=== PATIENT | male | born 1945 | race Caucasian/White ===

== ENCOUNTER 2022-03-02 11:52 | Inpatient (IN) | payer MEDICARE, OTHER, SELFPAY ==
[2022-03-02] VITALS (22 sets, daily range): BP systolic 108–133; BP diastolic 55–71; PULSE 78–99; RESP 14–18; TEMP 36.8–37.6; O2SAT 92–99; BMI 36.2
--- NOTE | 2022-03-02 13:02 | ED_ITS ---
HPI - General Adult General Time Seen by Provider: 13:03 Date Seen: 03/02/22 Chief complaint: Abdominal Pain Stated complaint: abdominal pain Time Seen by Provider: 03/02/22 12:21 Source: patient Mode of arrival: ambulatory Limitations: no limitations History of Present Illness HPI narrative: Aleksander is a 77-year-old male past medical history includes aortic stenosis, diabetes mellitus type 2, hypertension, status post appendectomy presents emergency department with with abdominal pain. Patient states that around 10:00 p.m. last night he developed some lower abdominal pain, sharp in nature, no radiation, no associated nausea vomiting, he had a normal bowel movement this morning with no blood in the stool, denies any urinary complaints or back pain. No fevers or chills. He had similar symptoms about a month ago but resolved over time. Patient has had 2 colonoscopies over the last 10 years which have been normal. Patient's pain is 8/10. Related Data Home Medications Medication Instructions Recorded Confirmed amlodipine 10 mg tablet 10 mg PO DAILY 03/02/22 03/03/22 atorvastatin 10 mg tablet 10 mg PO DAILY 03/02/22 03/03/22 furosemide 20 mg tablet 20 mg PO DAILY 03/02/22 03/03/22 glipizide 10 mg tablet 10 mg PO BIDWM 03/02/22 03/03/22 lisinopril 40 mg tablet 40 mg PO DAILY 03/02/22 03/03/22 metformin 500 mg tablet,extended 1,000 mg PO BIDWM 03/02/22 03/03/22 release 24 hr aspirin 81 mg tablet,delayed 81 mg PO DAILY 03/03/22 03/03/22 release (Adult Aspirin Regimen) Allergies Allergy/AdvReac Type Severity Reaction Status Date / Time No Known Drug Allergies Allergy Verified 03/02/22 14:12 Review of Systems Status of ROS: Reports: 10 or more systems reviewed and unremarkable except as noted in History and below PFSH PFS Medical History (Updated 03/02/22 @ 22:09 by Akiko Tyler MD) Abnormal echocardiogram Aortic stenosis Chronic kidney disease HTN (hypertension) Hyperlipidemia Morbid obesity Organic impotence Type 2 diabetes mellitus Surgical History (Updated 03/02/22 @ 21:57 by Akiko Tyler MD) H/O cornea transplant Hx of colonoscopy S/P appendectomy S/P TURP (~06/2007) Status post right knee replacement Family History (Updated 03/02/22 @ 21:58 by Akiko Tyler MD) Father Asthma Mother Diabetes Social History (Updated 03/02/22 @ 21:59 by Akiko Tyler MD) Narrative: According to [facility] record, he is a former smoker who quit 30-40 years ago. Smoking Status: Former smoker What tobacco products do you use: cigarettes Smoking packs per day: 2 Smoking cigarettes per day: 40.0 Smoking quit date/years: >15 years ago Do you use any of these nicotine containing products: None Second hand tobacco smoke exposure: Yes How often do you have a drink containing alcohol: monthly or less Alcohol type: beer How often do you have six or more drinks on one occasion: Never AUDIT-C Alcohol total score: 1 Non-prescribed substance use: denies use Caffeine: Yes (soda) service: Yes Exam Narrative: Exam Narrative: General: No obvious distress laying comfortably HEENT: Pupils equal round reactive to light, extraocular muscles intact Neck: Supple, full range of motion Heart: Normal sinus rhythm S1-S2 Lungs: Clear to auscultation bilaterally Abdomen: Nondistended, soft, tender to palpation the lower suprapubic region, no rebound or guarding, bowel sounds present : Muscle skeletal no lower extremity edema Neuro: Alert awake and oriented x3 Const: Vital Signs, click to edit/add: Vital Signs - 24 hr 03/02/22 12:05 03/02/22 14:02 03/02/22 13:41 Temperature 98.8 F Pulse Rate 99 Pulse Rate [Pulse Oximeter] 92 Respiratory Rate 16 Blood Pressure Blood Pressure [Ri ght Upper Arm] 122/71 Pulse Oximetry 98 96 97 Oxygen Delivery Me thod Room Air Room Air Oxygen Flow Rate 03/02/22 13:45 03/02/22 14:00 03/02/22 19:30 Temperature 99.6 F Pulse Rate 91 94 82 Pulse Rate [Pulse Oximeter] Respiratory Rate 14 Blood Pressure 112/61 Blood Pressure [Ri ght Upper Arm] Pulse Oximetry 96 95 98 Oxygen Delivery Me thod Room Air Room Air OxyMask Oxygen Flow Rate 10 03/02/22 19:35 03/02/22 19:40 03/02/22 19:45 Temperature 99.6 F 99.6 F 99.6 F Pulse Rate 78 78 79 Pulse Rate [Pulse Oximeter] Respiratory Rate 16 16 15 Blood Pressure 108/60 108/60 111/60 Blood Pressure [Ri ght Upper Arm] Pulse Oximetry 98 98 97 Oxygen Delivery Me thod OxyMask OxyMask OxyMask Oxygen Flow Rate 10 10 10 03/02/22 19:50 03/02/22 19:55 03/02/22 20:00 Temperature 99.6 F 99.6 F 99 F Pulse Rate 87 84 85 Pulse Rate [Pulse Oximeter] Respiratory Rate 15 17 14 Blood Pressure 118/63 109/55 L 109/55 L Blood Pressure [Ri ght Upper Arm] Pulse Oximetry 99 94 92 Oxygen Delivery Me thod OxyMask Room Air Room Air Oxygen Flow Rate 10 0 0 03/02/22 20:05 Temperature 99 F Pulse Rate 83 Pulse Rate [Pulse Oximeter] Respiratory Rate 14 Blood Pressure 117/60 Blood Pressure [Ri ght Upper Arm] Pulse Oximetry 94 Oxygen Delivery Me thod Nasal Cannula Oxygen Flow Rate 2 Course Course Hospital Course: 1:00 PM: AIDET performed. Vitals are normal at this time, workup will include IV peripheral, 50 mcg fentanyl for pain, will obtain CBC, CRP, CMP, lipase and urinalysis, suspect diverticulitis. Differential diagnosis include life- threatening of appendicitis, aortic aneurysm, mesentery ischemia, bowel perforation, volvulus and bowel obstruction. Other diagnosis include cholecystitis pancreatitis hepatitis gastritis GERD diverticulitis PUD pyelonephritis UTI renal colic stone or testicular torsion. Reevaluation(s) Reevaluation #1: Patient was updated on his lab and imaging results, imaging did show faint fat stranding in the ileocolic mesentery with pneumatosis and distal ileal loops with adjacent venous air. Appearance is consistent with a distal ileal enteritis, ischemic versus severe infection. 2. Other incidental findings as noted above. Spoke with Dr. Rivero surgery on-call, she will review imaging and talk to Radiology, possibly able to admit patient locally. Time: 15:25 Reevaluation #2: Patient was evaluated by Dr. Maurer surgery on-call, her recommendations were to take patient to surgery, patient and were in agreement with this plan. EKG was obtained at bedside, showed sinus tachycardia, bpm 106, anterior infarct age undetermined but seen on previous, pain has been controlled. Patient to be admitted post surgery to med surgical floor, Dr. Maurer accepts care of the patient. Time: 16:39 Vital Signs Vital signs: Initial Vital Signs Temperature 98.8 F 03/02/22 12:05 Temperature Source Temporal Artery Scan 03/02/22 12:05 Pulse Rate 92 03/02/22 12:05 Respiratory Rate 16 03/02/22 12:05 Blood Pressure 122/71 03/02/22 12:05 Blood Pressure Mean 88 03/02/22 12:05 Blood Pressure Position Sitting 03/02/22 12:05 Pulse Oximetry 98 03/02/22 12:05 Oxygen Delivery Method 03/02/22 12:05 Vital Signs Temperature 98.8 F 03/02/22 12:05 Pulse Rate 92 03/02/22 12:05 Respiratory Rate 16 03/02/22 12:05 Blood Pressure 122/71 03/02/22 12:05 Pulse Oximetry 98 03/02/22 12:05 Oxygen Delivery Method 03/02/22 12:05 Temperature 98.9 F 03/03/22 10:25 Pulse Rate 85 03/03/22 10:25 Respiratory Rate 16 03/03/22 10:25 Blood Pressure 129/64 03/03/22 10:25 Pulse Oximetry 98 03/03/22 10:25 Oxygen Delivery Method 03/03/22 10:25 Oxygen Flow Rate 1.5 03/03/22 10:25 Medical Decision Making Lab Data Labs: Lab Results 03/02/22 03/02/22 03/02/22 Range/Units 13:28 13:28 13:28 WBC 13.61 H (4.50-11.00) K/uL RBC 4.13 L (4.30-5.90) m/uL Hgb 12.7 L (13.5-17.5) gm/dL Hct 37.9 (37.0-53.0) % MCV 92 (80-100) fL MCH 31 (26-34) pg MCHC 34 (32-36) gm/dL RDW Coeff of Adam 12.0 (11.5-15.5) % Plt Count 229 (140-440) K/uL Neut % (Auto) 86.7 H (42.0-72.0) % Lymph % (Auto) 7.9 L (20-44) % [place] % (Auto) 5.0 (0.0-11.0) % Eos % (Auto) 0.0 (0.0-7.0) % Baso % (Auto) 0.1 (0.0-3.0) % Neut # (Auto) 11.80 H (1.7-7.0) K/uL Lymph # (Auto) 1.10 (0.90-2.90) K/uL [place] # (Auto) 0.70 (0.00-0.90) K/UL Eos # (Auto) 0.00 (0.00-0.50) K/uL Baso # (Auto) 0.00 (0.00-0.30) K/uL Sodium 134 L (135-149) mmol/L Potassium 4.8 (3.6-5.1) mmol/L Chloride 99 (96-114) mmol/L Carbon Dioxide 25 (20-32) mmol/L BUN 21 (7-30) mg/dL Creatinine 1.0 (0.5-1.5) mg/dL Estimated Creat Clear 72.76 Estimated GFR 77 ml/min Glucose 202 H (60-115) mg/dL Lactate (0.5-1.9) mmol/L Calcium 9.3 (8.4-10.6) mg/dL Total Bilirubin 0.8 (0.1-1.5) mg/dL AST 34 (12-35) U/L ALT 31 (4-50) U/L Alkaline Phosphatase 81 (40-150) U/L C-Reactive Protein 1.0 (0.5-1.0) mg/dL Total Protein 7.5 (6.0-8.3) g/dL Albumin 4.3 (3.3-5.0) g/dL Lipase 49 (23-300) U/L SARS-CoV-2 (PCR) (Negative) 03/02/22 03/02/22 Range/Units 15:29 16:03 WBC (4.50-11.00) K/uL RBC (4.30-5.90) m/uL Hgb (13.5-17.5) gm/dL Hct (37.0-53.0) % MCV (80-100) fL MCH (26-34) pg MCHC (32-36) gm/dL RDW Coeff of Adam (11.5-15.5) % Plt Count (140-440) K/uL Neut % (Auto) (42.0-72.0) % Lymph % (Auto) (20-44) % [place] % (Auto) (0.0-11.0) % Eos % (Auto) (0.0-7.0) % Baso % (Auto) (0.0-3.0) % Neut # (Auto) (1.7-7.0) K/uL Lymph # (Auto) (0.90-2.90) K/uL [place] # (Auto) (0.00-0.90) K/UL Eos # (Auto) (0.00-0.50) K/uL Baso # (Auto) (0.00-0.30) K/uL Sodium (135-149) mmol/L Potassium (3.6-5.1) mmol/L Chloride (96-114) mmol/L Carbon Dioxide (20-32) mmol/L BUN (7-30) mg/dL Creatinine (0.5-1.5) mg/dL Estimated Creat Clear Estimated GFR ml/min Glucose (60-115) mg/dL Lactate 1.0 (0.5-1.9) mmol/L Calcium (8.4-10.6) mg/dL Total Bilirubin (0.1-1.5) mg/dL AST (12-35) U/L ALT (4-50) U/L Alkaline Phosphatase (40-150) U/L C-Reactive Protein (0.5-1.0) mg/dL Total Protein (6.0-8.3) g/dL Albumin (3.3-5.0) g/dL Lipase (23-300) U/L SARS-CoV-2 (PCR) Negative SARS-CoV-2 (Negative) Discharge Plan Discharge Clinical Impression: Acute ischemic enteritis
[2022-03-02] MEDS: fentaNYL 100 MCG/2 ML inj 50 MCG IVP (13:15)
[2022-03-02 13:42] LABS: Basophils Percent Auto 0.1 % (0.0-3.0); Hematocrit 37.9 % (37.0-53.0); Hemoglobin* 12.7 gm/dL (13.5-17.5); Immature Granulocytes Pct Auto 0.3 %; Lymphocytes Percent Auto 7.9 % (20-44); Mean Corpuscular HGB Conc 34 gm/dL (32-36); Mean Corpuscular Hemoglobin 31 pg (26-34); Mean Corpuscular Volume 92 fL (80-100); Neutrophils Percent Auto 86.7 % (42.0-72.0); Platelet Count* 229 K/uL (140-440); Red Blood Count 4.13 m/uL (4.30-5.90); White Blood Count* 13.61 K/uL (4.50-11.00)
[2022-03-02 13:43] LABS: Slide Review Reflex No
[2022-03-02 14:00] LABS: Albumin* 4.3 g/dL (3.3-5.0); Chloride* 99 mmol/L (96-114)
[2022-03-02 14:01] LABS: Potassium* 4.8 mmol/L (3.6-5.1); Sodium* 134 mmol/L (135-149)
[2022-03-02 14:03] LABS: Alkaline Phosphatase* 81 U/L (40-150); Aspartate Amino Transferase* 34 U/L (12-35); Bilirubin Total* 0.8 mg/dL (0.1-1.5); Carbon Dioxide* 25 mmol/L (20-32); Est. Creatinine Clearance* 72.76; Estimated Glomerular Filt Rate 77 ml/min; Total Protein* 7.5 g/dL (6.0-8.3)
[2022-03-02 14:04] LABS: Alanine Aminotransferase* 31 U/L (4-50); Blood Urea Nitrogen* 21 mg/dL (7-30); Calcium* 9.3 mg/dL (8.4-10.6); Glucose* 202 mg/dL (60-115); Lipase* 49 U/L (23-300)
--- NOTE | 2022-03-02 14:05 | CRLHL7_ITS ---
For Patients: As a result of the Century Cures Act, medical imaging exams and procedure reports are released immediately into your electronic medical record. You may view this report before your referring provider. If you have questions, please contact your health care provider. INDICATION: Abdominal pain TECHNIQUE: Axial images were obtained from the diaphragm to the pubic symphysis. Reformats were obtained in the coronal and sagittal plane. IV Contrast: 143 cc Isovue 370 Oral Contrast: None COMPARISON: None. FINDINGS: Lower chest: Small hiatal hernia. Liver: Unremarkable. Normal in size and attenuation. No masses. Gallbladder and bile ducts: Cholelithiasis without pericholecystic inflammation. Spleen: Unremarkable. Normal in size without mass. Pancreas: Unremarkable. No mass or inflammation. Adrenal glands: Unremarkable. No nodules. Kidneys: Symmetric renal enhancement without hydronephrosis. Left renal cyst as well as multiple subcentimeter lesions which are too small for characterization. Vasculature: Atherosclerosis without abdominal aortic aneurysm. 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 GI tract: Small hiatal hernia. Distal ileal loops in the right lower quadrant have some faint fat stranding in the ileocolic mesentery with some loops of small bowel with pneumatosis and adjacent venous air (series 4, image 28; series 2, image 77). Pelvis: Moderate prostatic enlargement. Bones: Mild degenerative disc disease lumbar spine. IMPRESSION: 1. Faint fat stranding in the ileocolic mesentery with pneumatosis and distal ileal loops with adjacent venous air. Appearance is consistent with a distal ileal enteritis, ischemic versus severe infection. 2. Other incidental findings as noted above. Results called to Dr. Osuna at 1454 on 03/02/2022 Please note that all CT scans at this facility use dose modulation, iterative reconstruction, and/or weight-based dosing when appropriate to reduce radiation dose to as low as reasonably achievable. Dictated by Dajuan Herring MD @ 03/02/2022 2:59:00 PM (Electronically Signed)
[2022-03-02] MEDS: HYDROmorphone 0.5 mg/0.5 ml inj IVP ×2 (14:11→16:02)
--- NOTE | 2022-03-02 16:50 | PM.GSCN ---
History of Present Illness Consult details Date Seen: 03/02/22 Consult date: 03/02/22 Narrative: 77-year-old male presented to emergency room with right lower quadrant abdominal pain and I was asked by Dr. Osuna to see him in consultation. Patient states that his pain started yesterday at midnight. Started all of a sudden. The pain was getting progressively worse and he vomited today during the day. He did not notice passing any gas. The pain is worse with movement. Patient had a similar painful episode about 1 month ago and was almost ready to go to the emergency room, however changed his mind. That pain resolved gradually over the next few days. I reviewed patient's laboratory findings and his CT scan. His WBC is elevated at 13.6. His hemoglobin is 12.7. His liver function tests are normal. His CRP is normal. His lactate is normal as well. An abdominal CT was obtained that showed pneumatosis and the terminal ileum with adjacent venous air. There is no evidence of pneumoperitoneum. Review of Systems Narrative: General: no fevers HENT: no problems swallowing CV: no new shortness of breath, patient is not very active Resp: no cough GI: see above Skin: no new rashes Neuro: no muscle weakness Psyche: no depression, no anxiety PFSH PFSH Medical History (Updated 03/02/22 @ 16:59 by Cleo Maurer MD) Aortic stenosis Diabetes HTN (hypertension) Hyperlipidemia Surgical History (Updated 03/02/22 @ 16:52 by Cleo Maurer MD) H/O cornea transplant S/P appendectomy Status post right knee replacement Social History Smoking Status: Unknown if ever smoked Do you use any of these nicotine containing products: None How often do you have a drink containing alcohol: 2-4 times a month AUDIT-C Alcohol total score: 2 Non-prescribed substance use: denies use Meds Home Medications and Allergies Home Medications Medication Instructions Recorded Confirmed Type amlodipine 10 mg tablet mg 03/02/22 History atorvastatin 10 mg tablet mg 03/02/22 History blood sugar diagnostic (Accu-Chek 03/02/22 03/02/22 History Guide test strips) blood-glucose meter (Accu-Chek 03/02/22 03/02/22 History Guide Glucose Meter) furosemide 20 mg tablet mg 03/02/22 History glipizide 10 mg tablet mg 03/02/22 History lisinopril 40 mg tablet mg 03/02/22 History metformin 500 mg tablet,extended mg PO 03/02/22 History release 24 hr prednisolone acetate 1 % eye drp 03/02/22 History drops,suspension Allergies Allergy/AdvReac Type Severity Reaction Status Date / Time No Known Drug Allergies Allergy Verified 03/02/22 14:12 Exam Narrative: Exam Narrative: General appearance: Alert, cooperative, and in no distress Pulmonary: Chest symmetric, lungs clear bilaterally Cardiovascular Heart: Regular rate and rhythm, S1, S2, no murmurs/rubs/gallops Gastrointestinal Abdominal: soft, not distended, tender to palpation in epigastrium and right lower quadrant. Not tender to palpation in the left lower quadrant. However patient has positive Rovsing's sign and rebound tenderness in the right lower quadrant. Skin: Normal skin color, texture, and turgor. No rashes or lesions. Psychiatric: Alert, cooperative, normal affect. Const: Vital Signs, click to edit/add: Vital Signs - 24 hr 03/02/22 12:05 03/02/22 14:02 03/02/22 13:41 Temperature 98.8 F Pulse Rate 99 Pulse Rate [Pulse Oximeter] 92 Respiratory Rate 16 Blood Pressure [Ri ght Upper Arm] 122/71 Pulse Oximetry 98 96 97 Oxygen Delivery Me thod Room Air Room Air 03/02/22 13:45 03/02/22 14:00 Temperature Pulse Rate 91 94 Pulse Rate [Pulse Oximeter] Respiratory Rate Blood Pressure [Ri ght Upper Arm] Pulse Oximetry 96 95 Oxygen Delivery Me thod Room Air Room Air Results Labs Labs: Abnormal lab results 03/02/22 03/02/22 Range/Units 13:28 13:28 WBC 13.61 H (4.50-11.00) K/uL RBC 4.13 L (4.30-5.90) m/uL Hgb 12.7 L (13.5-17.5) gm/dL Neut % (Auto) 86.7 H (42.0-72.0) % Lymph % (Auto) 7.9 L (20-44) % Neut # (Auto) 11.80 H (1.7-7.0) K/uL Sodium 134 L (135-149) mmol/L Glucose 202 H (60-115) mg/dL Diabetes panel 03/02/22 Range/Units 13:28 Sodium 134 L (135-149) mmol/L Potassium 4.8 (3.6-5.1) mmol/L Chloride 99 (96-114) mmol/L Carbon Dioxide 25 (20-32) mmol/L BUN 21 (7-30) mg/dL Creatinine 1.0 (0.5-1.5) mg/dL Glucose 202 H (60-115) mg/dL Calcium 9.3 (8.4-10.6) mg/dL AST 34 (12-35) U/L ALT 31 (4-50) U/L Alkaline Phosphatase 81 (40-150) U/L Total Protein 7.5 (6.0-8.3) g/dL Albumin 4.3 (3.3-5.0) g/dL Calcium panel 03/02/22 Range/Units 13:28 Calcium 9.3 (8.4-10.6) mg/dL Albumin 4.3 (3.3-5.0) g/dL Pituitary panel 03/02/22 Range/Units 13:28 Sodium 134 L (135-149) mmol/L Potassium 4.8 (3.6-5.1) mmol/L Chloride 99 (96-114) mmol/L Carbon Dioxide 25 (20-32) mmol/L BUN 21 (7-30) mg/dL Creatinine 1.0 (0.5-1.5) mg/dL Glucose 202 H (60-115) mg/dL Calcium 9.3 (8.4-10.6) mg/dL Adrenal panel 03/02/22 Range/Units 13:28 Sodium 134 L (135-149) mmol/L Potassium 4.8 (3.6-5.1) mmol/L Chloride 99 (96-114) mmol/L Carbon Dioxide 25 (20-32) mmol/L BUN 21 (7-30) mg/dL Creatinine 1.0 (0.5-1.5) mg/dL Glucose 202 H (60-115) mg/dL Calcium 9.3 (8.4-10.6) mg/dL Total Bilirubin 0.8 (0.1-1.5) mg/dL AST 34 (12-35) U/L ALT 31 (4-50) U/L Alkaline Phosphatase 81 (40-150) U/L Total Protein 7.5 (6.0-8.3) g/dL Albumin 4.3 (3.3-5.0) g/dL All other labs normal. Assessment and Plan Assessment and plan (1) Pneumatosis intestinalis: Status: Acute Plan 77-year-old male presents to emergency room with right lower quadrant pain and findings of terminal ileum pneumatosis with venous air concerning for ischemic bowel. I discussed with the patient and his his laboratory and imaging findings. Patient's clinical exam is concerning for peritonitis and his CT findings are concerning for possible bowel ischemia. Although, patient's CRP and lactate are normal. I recommended to proceed with exploratory laparoscopy and possible exploratory laparotomy. The procedure was discussed in detail. Discussed with the patient that if I do find ischemic bowel, we will proceed with small-bowel resection. The risks of the procedure including infection, bleeding, injury to intra-abdominal organs, the need for possible additional procedures were all discussed with the patient, and he agreed to proceed.
[2022-03-02] MEDS: PIPERACILLIN/TAZOBACTAM 3.375 GM in 0.9 % SODIUM CHLORIDE Mini-bag 100 ML IVPB ×2 (17:27→21:05)
[2022-03-02] MEDS: BUPIVACAINE 0.25 %/EPI 1:200K 30 ml INJECTION (17:45)
[2022-03-02 17:54] LABS: SARS PCR* Negative SARS-CoV-2 (Negative)
--- NOTE | 2022-03-02 18:51 | W.PM.NB ---
Nerve Block Nerve Block Time Seen by Provider: 17:13 Date Seen: 03/02/22 Type of block requested by surgeon for post-operative analgesia: TAP Side: bilateral Time out performed: Yes Verification of patient name: Yes Verification of date of : Yes Name of person performing procedure: Shae Drew CRNA Continuous monitoring Was continuous monitoring of O2 sat, B/P, ekg monitor tech, recorded every 15 minutes?: Yes Procedure Checklist: sterile prep, needles and gloves Ultrasound guided. Images saved: Yes Medications given in 5ml increments after negative aspiration: Marcaine (30 ml total) %: 0.25 mL: 15 Needle gauge: 20 and Exparel (10 ml total) mL: 5 Needle gauge: 20 Patient tolerated procedure well: Yes Block Charges Block Charge (with Pro Fee): TAP Bilateral Use of Ultrasound Machine for Block: Yes- US Guidance/pain block
--- NOTE | 2022-03-02 19:41 | P.GSOP_ITS ---
Operative Note Date of procedure: 03/03/22 Pre-op diagnosis: 1. Right lower quadrant abdominal pain with pneumatosis of terminal ileum and venous gas. Post-op diagnosis: 1. Necrotic segment of distal terminal ileum. Type of Procedure: 1. Exploratory laparoscopy. 2. Exploratory laparotomy. 3. Segmental small bowel resection with primary anastomosis. Indications: 77-year-old male presented to emergency room with worsening right lower quadrant abdominal pain that started yesterday at midnight. Patient's pain was getting progressively worse and he developed vomiting. When he was seen in the emergency room, he was found to have an elevated WBC of 13 with normal CRP normal lactate. An abdominal CT was obtained that showed minimal inflammation near the terminal ileum with pneumatosis and adjacent venous gas. This was concerning for bowel ischemia. On clinical exam patient had rebound tenderness in the right lower quadrant and epigastrium. Given patient's clinical history and his laboratory and imaging findings, exploratory laparoscopy and possible laparotomy was recommended. The procedure was discussed in detail. The risks associated the procedure including infection, bleeding, injury to intra- abdominal organs, possible small-bowel resection, and possible need for additional procedures were all discussed with the patient, and he agreed to proceed. Procedure Description: After discussing the risks and benefits of the procedure, the patient signed informed consent.? The operative site was marked and the patient was brought to the operating room and placed on the operating table in supine position.? Care was taken to pad the patient's pressure points.?? The patient was then intubated by anesthesia.??A TAP block was administered by anesthesia. Mistry catheter was placed under sterile conditions. The operative site was then prepped and draped in the usual sterile fashion.? A time-out was then performed. Local anesthetic was injected in the left upper quadrant and a 5 mm skin incision was made with a scalpel. A Visiport was used and abdomen was entered using direct visualization of division of the abdominal wall layers. The abdomen was insufflated with carbon dioxide. The abdomen was briefly surveyed and in the right lower quadrant a segment of necrotic small bowel was visualized. Decision was made to convert laparoscopy to exploratory laparotomy. Skin incision was made around the umbilicus extended superiorly and inferiorly with a scalpel. Subcutaneous fat was divided with cautery. Anterior fascia was grasped with Harris clamps and divided with cautery. Posterior sheath and peritoneum were also divided with cautery and abdomen was entered. This incision was extended superiorly and inferiorly with cautery with care taken not to injure intra-abdominal organs. The 5 mm port was then removed. An Vazquez retractor was placed into the surgical incision. The necrotic segment of small intestine was visualized and eviscerated. There was sharp demarcation distally of dusky bowel and healthy appearing bowel. This was located in the terminal ileum at least 20 cm from the ileocecal valve. The necrotic segment was approximately 25-30 cm. The mesentery did not appear to be congested. The entire small intestine was eviscerated and the rest of the small intestine appeared healthy and perfused. I then used Doppler to Doppler the blood flow to the small intestine just distal and proximal to the necrotic segment and Doppler flow was heard. We then proceeded with small-bowel resection. An opening was made in the small bowel mesentery near the mesenteric border with cautery. This was done just proximal and just distal to the proposed resected segment of the small intestine. The small intestine was then divided with blue loads of KEDAR stapler proximally and distally. The small bowel mesentery of the resected segment was then divided with clamps and Vicryl ties. The small bowel segment was then sent to pathology as terminal ileum. The 2 staple lines were lined up for primary anastomosis. Good perfusion was seen of both of the ends of the small intestine. A stitch was placed to line up the anti mesenteric border of the proximal and distal small intestine. An enterotomy was then made with cautery in the proximal and distal small intestine. Thickened green bowel contents were noted and squeezed out of the small intestine. No spillage into the abdomen was noted. A [id number] small bowel anastomosis was then created with a blue load of 100 KDEAR stapler. The stapler was then removed and the small intestine was examined from the inside. No active bleeding was noted. The staple line appeared to be healthy and the mucosa was pink. The common enterotomy was then closed with interrupted Lembert sutures using 3-0 silk. A crotch stitch was placed with 3-0 silk pop-off as well. An additional interrupted 3-0 silk stitch was used in the middle of the anastomosis to relieve pressure. The anastomosis was palpated and was patent. The anastomosis was approximately within 10 cm of the ileocecal valve. We then changed our gloves and removed all dirty instruments. The Vazquez retractor was removed. The small bowel mesenteric defect was then closed with a running 3-0 Vicryl suture. Abdomen was irrigated with warm normal saline. The anterior fascia was then closed with 2 running 0-0 Maxon sutures. The dermis near the umbilicus was reapproximated with interrupted 3-0 Vicryl sutures. The skin of the laparotomy incision and left upper quadrant incision was closed with minoo. Sterile dressings were then placed over the incisions. ? ? The patient was then woken and transported to the recovery area in stable co ndition. ? The patient tolerated the procedure well. Findings: Necrotic segment of distal terminal ileum. No adjacent mass or adhesions noted. Anesthesia: GETA Surgeon: Cleo Maurer MD Estimated blood loss (mL): 20 Additional Specimen Information: 1. Terminal ileum. Condition: stable Disposition: PACU
--- NOTE | 2022-03-02 20:23 | SUR.PHASEI ---
patient met discharge criteria per anesthesia
--- NOTE | 2022-03-02 20:29 | PM.IMCN1 ---
Date of Consult Patient: Brie Patient Consult date: 03/02/22 Requesting Physician: General Surgery Primary Care Provider: Rita Gutierrez MD Consult Narrative Reason for consult: severe , HTN, hypercholesterolemia, diabetes mellitus type 2. Narrative: This is a 77-year-old male who underwent laparotomy and partial small-bowel resection this this evening for acute ischemic enteritis with pneumatosis. He is currently still somewhat sedated from his recent surgery and unable to give me history. I have obtained history from the chart. Dr. Maurer from General surgery called and asked me to consult to help manage chronic medical illnesses such as severe aortic stenosis, hypertension, hyperlipidemia, and diabetes mellitus type 2. According to the patient's chart he started having abdominal pain last night. He had had similar symptoms about a month ago. As notified by anesthesia intraoperatively he had some dropped beats on telemetry. Have him on telemetry here and have obtained an EKG. At this time I am not seeing any dropped beats or arrhythmias. Review of Systems Status of ROS: Reports: unobtainable due to medical condition and unobtainable due to mental status (Sedated from recent surgery) PFSH PFSH Medical History (Updated 03/02/22 @ 22:09 by Akiko Tyler MD) Abnormal echocardiogram Aortic stenosis Chronic kidney disease HTN (hypertension) Hyperlipidemia Morbid obesity Organic impotence Type 2 diabetes mellitus Surgical History (Updated 03/02/22 @ 21:57 by Akiko Tyler MD) H/O cornea transplant Hx of colonoscopy S/P appendectomy S/P TURP (~06/2007) Status post right knee replacement Family History (Updated 03/02/22 @ 21:58 by Akiko Tyler MD) Father Asthma Mother Diabetes Social History (Updated 03/02/22 @ 21:59 by Akiko Tyler MD) Narrative: According to [facility] record, he is a former smoker who quit 30-40 years ago. Smoking Status: Unknown if ever smoked Do you use any of these nicotine containing products: None How often do you have a drink containing alcohol: 2-4 times a month AUDIT-C Alcohol total score: 2 Non-prescribed substance use: denies use Meds Home Medications and Allergies Home Medications Medication Instructions Recorded Confirmed Type amlodipine 10 mg tablet mg 03/02/22 History atorvastatin 10 mg tablet mg 03/02/22 History blood sugar diagnostic (Accu-Chek 03/02/22 03/02/22 History Guide test strips) blood-glucose meter (Accu-Chek 03/02/22 03/02/22 History Guide Glucose Meter) furosemide 20 mg tablet mg 03/02/22 History glipizide 10 mg tablet mg 03/02/22 History lisinopril 40 mg tablet mg 03/02/22 History metformin 500 mg tablet,extended mg PO 03/02/22 History release 24 hr prednisolone acetate 1 % eye drp 03/02/22 History drops,suspension Allergies Allergy/AdvReac Type Severity Reaction Status Date / Time No Known Drug Allergies Allergy Verified 03/02/22 14:12 Exam Narrative: Exam Narrative: General: Sedated from recent anesthesia, arousable. HEENT: Normocephalic atraumatic, pupils equally round and reactive to light and accommodation. Oropharynx clear. Mucous membranes are moist. No cervical lymphadenopathy, thyromegaly or carotid bruits. No JVD. Cardiovascular: Regular rate and rhythm. Grade 3/6 systolic murmur loudest at the right upper sternal border, radiates to both carotids. Chest: No increased work of breathing. Clear to auscultation bilaterally. No crackles or wheezes. Abdomen: Surgical bandage midline is clean, dry, and intact. Extremities: No edema, no cyanosis or clubbing. Skin: No jaundice, no pallor, no rashes. Const: Vital Signs, click to edit/add: Vital Signs - 24 hr 03/02/22 12:05 03/02/22 14:02 03/02/22 13:41 Temperature 98.8 F Pulse Rate 99 Pulse Rate [Pulse Oximeter] 92 Respiratory Rate 16 Blood Pressure Blood Pressure [Ri ght Upper Arm] 122/71 Pulse Oximetry 98 96 97 Oxygen Delivery Me thod Room Air Room Air Oxygen Flow Rate 03/02/22 13:45 03/02/22 14:00 03/02/22 19:30 Temperature 99.6 F Pulse Rate 91 94 82 Pulse Rate [Pulse Oximeter] Respiratory Rate 14 Blood Pressure 112/61 Blood Pressure [Ri ght Upper Arm] Pulse Oximetry 96 95 98 Oxygen Delivery Me thod Room Air Room Air OxyMask Oxygen Flow Rate 10 03/02/22 19:35 03/02/22 19:40 03/02/22 19:45 Temperature 99.6 F 99.6 F 99.6 F Pulse Rate 78 78 79 Pulse Rate [Pulse Oximeter] Respiratory Rate 16 16 15 Blood Pressure 108/60 108/60 111/60 Blood Pressure [Ri ght Upper Arm] Pulse Oximetry 98 98 97 Oxygen Delivery Me thod OxyMask OxyMask OxyMask Oxygen Flow Rate 10 10 10 03/02/22 19:50 03/02/22 19:55 03/02/22 20:00 Temperature 99.6 F 99.6 F 99 F Pulse Rate 87 84 85 Pulse Rate [Pulse Oximeter] Respiratory Rate 15 17 14 Blood Pressure 118/63 109/55 L 109/55 L Blood Pressure [Ri ght Upper Arm] Pulse Oximetry 99 94 92 Oxygen Delivery Me thod OxyMask Room Air Room Air Oxygen Flow Rate 10 0 0 03/02/22 20:05 Temperature 99 F Pulse Rate 83 Pulse Rate [Pulse Oximeter] Respiratory Rate 14 Blood Pressure 117/60 Blood Pressure [Ri ght Upper Arm] Pulse Oximetry 94 Oxygen Delivery Me thod Nasal Cannula Oxygen Flow Rate 2 Documenting provider has reviewed patient's vital signs: yes Labs Labs: Short CBC 03/02/22 Range/Units 13:28 WBC 13.61 H (4.50-11.00) K/uL Hgb 12.7 L (13.5-17.5) gm/dL Hct 37.9 (37.0-53.0) % Plt Count 229 (140-440) K/uL BMP 03/02/22 13:28 Sodium 134 L Potassium 4.8 Chloride 99 Carbon Dioxide 25 BUN 21 Creatinine 1.0 Glucose 202 H Calcium 9.3 Liver Function 03/02/22 Range/Units 13:28 Total Bilirubin 0.8 (0.1-1.5) mg/dL AST 34 (12-35) U/L ALT 31 (4-50) U/L Alkaline Phosphatase 81 (40-150) U/L Albumin 4.3 (3.3-5.0) g/dL 03/02/2022 8:52 p.m. EKG: Normal sinus rhythm. 79 beats per minute. Anterior infarct, age undetermined. This is similar to an EKG done 12/06/2018 at [facility]. Ordering Physician: Gabe Osuna M.D. Date of Service: 03/02/22 Procedure(s): CT abdomen pelvis w con Accession Number(s): [id number] cc: Gabe Osuna M.D.; Rita Gutierrez M.D.~ For Patients: As a result of the Century Cures Act, medical imaging exams and procedure reports are released immediately into your electronic medical record. You may view this report before your referring provider. If you have questions, please contact your health care provider. INDICATION: Abdominal pain TECHNIQUE: Axial images were obtained from the diaphragm to the pubic symphysis. Reformats were obtained in the coronal and sagittal plane. IV Contrast: 143 cc Isovue 370 Oral Contrast: None COMPARISON: None. FINDINGS: Lower chest: Small hiatal hernia. Liver: Unremarkable. Normal in size and attenuation. No masses. Gallbladder and bile ducts: Cholelithiasis without pericholecystic inflammation. Spleen: Unremarkable. Normal in size without mass. Pancreas: Unremarkable. No mass or inflammation. Adrenal glands: Unremarkable. No nodules. Kidneys: Symmetric renal enhancement without hydronephrosis. Left renal cyst as well as multiple subcentimeter lesions which are too small for characterization. Vasculature: Atherosclerosis without abdominal aortic aneurysm. 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 GI tract: Small hiatal hernia. Distal ileal loops in the right lower quadrant have some faint fat stranding in the ileocolic mesentery with some loops of small bowel with pneumatosis and adjacent venous air (series 4, image 28; series 2, image 77). Pelvis: Moderate prostatic enlargement. Bones: Mild degenerative disc disease lumbar spine. IMPRESSION: 1. Faint fat stranding in the ileocolic mesentery with pneumatosis and distal ileal loops with adjacent venous air. Appearance is consistent with a distal ileal enteritis, ischemic versus severe infection. 2. Other incidental findings as noted above. Results called to Dr. Osuna at 1454 on 03/02/2022 Please note that all CT scans at this facility use dose modulation, iterative reconstruction, and/or weight-based dosing when appropriate to reduce radiation dose to as low as reasonably achievable. Dictated by Dajuan Herring MD @ 03/02/2022 2:59:00 PM (Electronically Signed) Assessment and Plan Assessment and plan (1) Acute ischemic enteritis: Status: Acute (2) Pneumatosis intestinalis: Status: Acute (3) Aortic stenosis: Problem comment: Nonrheumatic Moderate 201902/24/22 severe: The aortic valve is trileaflet and Calcified with severe ectopic LVOT calcification seen., severe stenosis and trivial regurgitation. The aortic valve peak velocity is 4.4 m/s, the peak gradient is 76 mmHg, and the mean gradient is 45 mmHg. The aortic valve area is 0.85 cm?? with a dimensionless index of 0.20. The stroke volume index is 39.3 ml/m??. Note: the Doppler gradients are taken a non-PVC beat. Status: Chronic (4) Chronic kidney disease: Problem comment: Baseline creatinine 1.3 Status: Chronic (5) Morbid obesity: Status: Acute (6) Type 2 diabetes mellitus: Status: Chronic (7) Hyperlipidemia: Status: Chronic (8) HTN (hypertension): Problem comment: Essential Status: Chronic Plan Due to patient's sedation I am unable to reconcile his home medications tonight. We will work on this tomorrow when he is more awake and able to give this information. Since he is still rather sedated and will be NPO with an NG tube in place, I will hold his usual glipizide and metformin and start him on AQ 6 hour insulin sliding scale. Blood pressure is adequately controlled at this time. He is on outpatient blood pressure medications, but with his NPO status I will hold these for now. Same with statin. Viewed his records from [facility] including an echocardiogram done 6 days ago that showed worsening of aortic stenosis from moderate 2 years ago to severe now. There is severe ectopic LV OT calcification seen. From Dr. Bagley hers most recent note in the November of last year, it did not appear that he was having any symptoms of severe aortic stenosis. It appears that this echocardiogram was ordered for routine follow-up since it had been 2 years from his previous echo. He also had possible arrhythmia in the OR that has resolved. Monitor on telemetry. Be cautious with IV fluids. He is currently getting maintenance fluids at 75 mL/hour which I think is adequate for now despite his large body habitus. Reassess in the morning.
[2022-03-02] MEDS: LACTATED RINGERS 1000 ML 1,000 ML 75 ML IV (20:35)
[2022-03-03] VITALS (12 sets, daily range): BP systolic 113–136; BP diastolic 56–95; PULSE 73–97; RESP 16–18; TEMP 36.8–37.3; O2SAT 93–98; BMI 36.2
[2022-03-03] MEDS: HYDROmorphone 0.5 mg/0.5 ml inj IVP ×8 (01:22→22:31)
[2022-03-03] MEDS: PIPERACILLIN/TAZOBACTAM 3.375 GM in 0.9 % SODIUM CHLORIDE Mini-bag 100 ML IVPB ×4 (02:29→21:27)
--- NOTE | 2022-03-03 06:14 | PC.NURSE ---
Admission note: Pt arrived at the unit at 2009 on a bed. Appeared drowsy and weak. Pt had urinary catheter, NG tube and IV ringers lactate on arrival. NG tube connectd to low intermittent suction and draining brownish gastric content. SCD and JANNIE applied. Blood glucose tested on 0000 and 0600 are 197 and 219 respectively. No insulin was given at 0000 for suggestion was made to MD to maintain pt on this BG since pt is on NPO until the next BG check. NSR on telemetry reading. Complained of pain between 2 and 4 and PRN Hydromorphone given as ordered. Conscious and alert this morning.
[2022-03-03] MEDS: LACTATED RINGERS 1000 ML 1,000 ML 75 ML IV (09:33)
[2022-03-03 09:44] LABS: Albumin* 3.9 g/dL (3.3-5.0); Chloride* 102 mmol/L (96-114)
[2022-03-03 09:45] LABS: Potassium* 4.6 mmol/L (3.6-5.1); Sodium* 134 mmol/L (135-149)
[2022-03-03 09:47] LABS: Alkaline Phosphatase* 64 U/L (40-150); Aspartate Amino Transferase* 40 U/L (12-35); Bilirubin Total* 0.9 mg/dL (0.1-1.5); Blood Urea Nitrogen* 24 mg/dL (7-30); Carbon Dioxide* 28 mmol/L (20-32); Creatinine* 1.1 mg/dL (0.5-1.5); Est. Creatinine Clearance* 66.15; Estimated Glomerular Filt Rate 69 ml/min; Total Protein* 6.9 g/dL (6.0-8.3)
[2022-03-03 09:48] LABS: Alanine Aminotransferase* 26 U/L (4-50); Calcium* 8.7 mg/dL (8.4-10.6); Glucose* 187 mg/dL (60-115)
--- NOTE | 2022-03-03 13:50 | PM.GSPN ---
Subjective Subjective Date Seen: 03/03/22 Interval history: Patient is doing well. He denies nausea. He ambulated. His Mistry catheter came out. He complains of some abdominal pain that is well controlled with pain medication. Exam Narrative: Exam Narrative: Abdomen is soft, not distended, minimally tender to palpation near the midline laparotomy incision. The surgical incision is covered with clean and dry dressing. Const: Vital Signs, click to edit/add: Vital Signs - 24 hr 03/02/22 14:02 03/02/22 14:00 03/02/22 19:30 Temperature 99.6 F Pulse Rate 94 82 Pulse Rate [Right Pulse Oximeter] Respiratory Rate 14 Blood Pressure 112/61 Blood Pressure [Le ft Arm] Pulse Oximetry 96 95 98 Oxygen Delivery Me thod Room Air OxyMask Oxygen Flow Rate 10 03/02/22 19:35 03/02/22 19:40 03/02/22 19:45 Temperature 99.6 F 99.6 F 99.6 F Pulse Rate 78 78 79 Pulse Rate [Right Pulse Oximeter] Respiratory Rate 16 16 15 Blood Pressure 108/60 108/60 111/60 Blood Pressure [Le ft Arm] Pulse Oximetry 98 98 97 Oxygen Delivery Me thod OxyMask OxyMask OxyMask Oxygen Flow Rate 10 10 10 03/02/22 19:50 03/02/22 19:55 03/02/22 20:00 Temperature 99.6 F 99.6 F 99 F Pulse Rate 87 84 85 Pulse Rate [Right Pulse Oximeter] Respiratory Rate 15 17 14 Blood Pressure 118/63 109/55 L 109/55 L Blood Pressure [Le ft Arm] Pulse Oximetry 99 94 92 Oxygen Delivery Me thod OxyMask Room Air Room Air Oxygen Flow Rate 10 0 0 03/02/22 20:05 03/02/22 21:34 03/02/22 20:15 Temperature 99 F 98.3 F 98.2 F Pulse Rate 83 Pulse Rate [Right Pulse Oximeter] 88 85 Respiratory Rate 14 16 16 Blood Pressure 117/60 Blood Pressure [Le ft Arm] 120/70 125/66 Pulse Oximetry 94 95 94 Oxygen Delivery Me thod Nasal Cannula Nasal Cannula Nasal Cannula Oxygen Flow Rate 2 2 2 03/02/22 20:45 03/02/22 21:00 03/02/22 20:30 Temperature 98.3 F 98.3 F 98.3 F Pulse Rate Pulse Rate [Right Pulse Oximeter] 78 80 84 Respiratory Rate 16 16 16 Blood Pressure Blood Pressure [Le ft Arm] 133/67 133/68 120/59 L Pulse Oximetry 95 96 93 Oxygen Delivery Me thod Nasal Cannula Nasal Cannula Nasal Cannula Oxygen Flow Rate 2 2 2 03/02/22 21:15 03/02/22 21:45 03/02/22 22:15 Temperature 98.2 F 98.6 F 98.7 F Pulse Rate Pulse Rate [Right Pulse Oximeter] 86 85 90 Respiratory Rate 16 18 18 Blood Pressure Blood Pressure [Le ft Arm] 120/70 120/62 132/63 Pulse Oximetry 95 94 92 Oxygen Delivery Me thod Nasal Cannula Nasal Cannula Nasal Cannula Oxygen Flow Rate 2 2 2 03/03/22 01:00 03/02/22 23:00 03/03/22 02:38 Temperature 98.8 F 98.8 F 98.8 F Pulse Rate Pulse Rate [Right Pulse Oximeter] 86 86 92 Respiratory Rate 18 18 18 Blood Pressure Blood Pressure [Le ft Arm] 132/63 124/61 133/64 Pulse Oximetry 95 95 95 Oxygen Delivery Me thod Nasal Cannula Nasal Cannula Nasal Cannula Oxygen Flow Rate 2 2 2 03/03/22 00:00 03/03/22 01:00 03/03/22 03:00 Temperature 98.7 F 98.7 F Pulse Rate 92 Pulse Rate [Right Pulse Oximeter] 94 97 Respiratory Rate 18 18 Blood Pressure Blood Pressure [Le ft Arm] 115/56 L 121/58 L Pulse Oximetry 94 93 Oxygen Delivery Me thod Nasal Cannula Nasal Cannula Oxygen Flow Rate 2 2 03/03/22 03:00 03/03/22 07:00 03/03/22 07:00 Temperature 98.3 F 99.0 F Pulse Rate 85 Pulse Rate [Right Pulse Oximeter] 96 87 Respiratory Rate 18 18 Blood Pressure Blood Pressure [Le ft Arm] 113/95 H 121/66 Pulse Oximetry 95 96 Oxygen Delivery Me thod Nasal Cannula Nasal Cannula Oxygen Flow Rate 2 1 03/03/22 09:45 03/03/22 09:45 03/03/22 10:25 Temperature 99.0 F 98.9 F Pulse Rate Pulse Rate [Right Pulse Oximeter] 93 85 Respiratory Rate 18 16 16 Blood Pressure Blood Pressure [Le ft Arm] 121/66 129/64 Pulse Oximetry 96 96 98 Oxygen Delivery Me thod Nasal Cannula Nasal Cannula Nasal Cannula Oxygen Flow Rate 1 1.5 1.5 03/03/22 11:00 Temperature Pulse Rate 83 Pulse Rate [Right Pulse Oximeter] Respiratory Rate Blood Pressure Blood Pressure [Le ft Arm] Pulse Oximetry Oxygen Delivery Me thod Oxygen Flow Rate Progress Note: A&P Assessment and plan (1) S/P exploratory laparotomy: Status: Acute Assessment and Plan: 77-year-old male s/p exploratory laparotomy and small-bowel resection for necrotic segment of terminal ileum of unclear etiology POD 1. Patient's Mistry catheter was removed. He continued to have great urine output overnight. Will continue with NG tube to suction. Continue NPO. The etiology of patient's segmental bowel ischemia is unclear. Patient's recent echo did not show a clot that would be suggestive of thrombosis. Patient could have had intestinal ischemia due to small-vessel calcifications. It would be reasonable to consider CT angiogram after patient improves and discharges. (2) S/P small bowel resection: Status: Acute
--- NOTE | 2022-03-03 15:04 | PC.NURSE ---
Pt alert and oriented x3. Pt pleasant and cooperative. Pt reports 4/10 pain in abdomen, pain managed with PRN Dilaudid. Pts two abdominal dressings CDI. Pt has NG tube on low intermittent suction. NG tube is currently at 75 out put for shift was 155. Pt is NPO with ice chips at bed side. Pt up with A1/SBA with walker and gait belt.
--- NOTE | 2022-03-03 17:32 | PC.NURSE ---
PATIENT PLEASANT AND COOPERATIVE, UP SBA WITH STAFFING IN HALLWAYS TOLERATING WELL, RATING PAIN IN ABDOMEN 4/10 BEING MANAGED WITH PRN DILAUDID AND ICE TO SITE, PATIENT STATED PAIN IS WORSE WITH MOVEMENT AND COUGHING, PATIENT EDUCATED ON SPLINTING AND RETURNED DEMONSTRATION, NG PATENT RETURNING BROWN/YELLOW TINGED CONTENTS, BOWEL SOUNDS HYPOACTIVE, DRESSINGS INTACT X2 TO ABDOMEN, NPO WITH SIPS OF WATER AND ICE CHIPS PATIENT TOLERATING WELL, OCCASIONALLY NAUSEATED PER PATIENT DECLINING NEED FOR INTERVENTION.
--- NOTE | 2022-03-03 17:58 | PM.IMPN1 ---
Progress Note: A&P Assessment and plan (1) S/P small bowel resection: Problem details: Doing well postoperatively today. Monitor for postoperative problems including ileus, infection. Coordinate with surgery. Status: Acute (2) Ischemic necrosis of small bowel: Problem details: Unknown cause for ischemia. Certainly patient has risk factors for vascular ischemia. Patient gives history that may represent intestinal angina about a month ago and even before that. Consider outpatient evaluation for mesentery ischemia Status: Acute (3) Abnormal echocardiogram: Problem details: 02/24/2022 1. Normal LV size, moderately increased wall thickness, normal global systolic function with an estimated EF of 55 - 60%. 2. Right ventricular cavity size is normal, global systolic RV function is normal. 3. Moderately enlarged left atrium. 4. 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 The aortic valve peak velocity is 4.4 m/s, the peak gradient is 76 mmHg, and the mean gradient is 45 mmHg. The aortic valve area is 0.85 cm?? with a dimensionless index of 0.20. The stroke volume index is 39.3 ml/m??. Note: the Doppler gradients are taken a non-PVC beat. 5. The mitral valve is sclerotic, trace mitral regurgitation. 6. Tricuspid valve is normal. 7. Normal estimated pulmonary pressures by tricuspid regurgitation velocity and right atrial pressure (23 mmHg plus RAP). 8. No pericardial effusion. Comparison Compared to prior exam of 01/20/2020: - Aortic stenosis has increased. Status: Acute (4) Chronic kidney disease: Problem details: Baseline creatinine 1.3. Monitor fluid and electrolytes. Status: Chronic (5) Morbid obesity: Status: Acute (6) Type 2 diabetes mellitus: Problem details: Hold oral medications. Levemir plus sliding scale Status: Chronic (7) HTN (hypertension): Problem details: Resume blood pressure medication as needed Status: Chronic (8) Aortic stenosis: Problem details: Nonrheumatic Not clearly symptomatic prior to this hospitalization. 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 The aortic valve peak velocity is 4.4 m/s, the peak gradient is 76 mmHg, and the mean gradient is 45 mmHg. The aortic valve area is 0.85 cm?? with a dimensionless index of 0.20. The stroke volume index is 39.3 ml/m??. Note: the Doppler gradients are taken a non-PVC beat. Status: Chronic Plan Continue in-hospital for recovery from surgery. Time Spent With Patient Total time spent: Total time spent today is 40 minutes, 30 minutes in coordination of care discussing with patient other providers ongoing evaluation management of ischemic bowel, recovery from surgery and management of other medical problems including diabetes Subjective Date Seen: 03/03/22 Interval history: 77-year-old male seen in followup of bowel resection for ischemic bowel. Patient developed abdominal pain yesterday and was found to have ischemic bowel. Taken to the OR by Dr. Maurer where a short segment of ischemic bowel was resected with primary closure. No obvious explanation for ischemic bowel. Todayhe reports generally doing well. He is having some expected abdominal pain. No shortness of breath, fever, nausea. NG tube is in place. Exam Narrative: Exam Narrative: He is alert and appears in no distress. Speech is normal. He is oriented to his circumstances. He is seen with his today. Respirations are clear to auscultation. Cardiovascular: S1, S2, regular rate and rhythm. Abdomen: No significant bowel sounds. Abdomen is protuberant. He has a midline incision with a bandage. No obvious erythema or drainage. No peritonitis. Mild tenderness expected postop. Extremities without significant edema. He moves all 4 extremities well. Good perfusion. Const: Vital Signs, click to edit/add: Vital Signs - 24 hr 03/02/22 19:30 03/02/22 19:35 03/02/22 19:40 Temperature 99.6 F 99.6 F 99.6 F Pulse Rate 82 78 78 Pulse Rate [Right Pulse Oximeter] Respiratory Rate 14 16 16 Blood Pressure 112/61 108/60 108/60 Blood Pressure [Le ft Arm] Pulse Oximetry 98 98 98 Oxygen Delivery Me thod OxyMask OxyMask OxyMask Oxygen Flow Rate 10 10 10 03/02/22 19:45 03/02/22 19:50 03/02/22 19:55 Temperature 99.6 F 99.6 F 99.6 F Pulse Rate 79 87 84 Pulse Rate [Right Pulse Oximeter] Respiratory Rate 15 15 17 Blood Pressure 111/60 118/63 109/55 L Blood Pressure [Le ft Arm] Pulse Oximetry 97 99 94 Oxygen Delivery Me thod OxyMask OxyMask Room Air Oxygen Flow Rate 10 10 0 03/02/22 20:00 03/02/22 20:05 03/02/22 21:34 Temperature 99 F 99 F 98.3 F Pulse Rate 85 83 Pulse Rate [Right Pulse Oximeter] 88 Respiratory Rate 14 14 16 Blood Pressure 109/55 L 117/60 Blood Pressure [Le ft Arm] 120/70 Pulse Oximetry 92 94 95 Oxygen Delivery Me thod Room Air Nasal Cannula Nasal Cannula Oxygen Flow Rate 0 2 2 03/02/22 20:15 03/02/22 20:45 03/02/22 21:00 Temperature 98.2 F 98.3 F 98.3 F Pulse Rate Pulse Rate [Right Pulse Oximeter] 85 78 80 Respiratory Rate 16 16 16 Blood Pressure Blood Pressure [Le ft Arm] 125/66 133/67 133/68 Pulse Oximetry 94 95 96 Oxygen Delivery Me thod Nasal Cannula Nasal Cannula Nasal Cannula Oxygen Flow Rate 2 2 2 03/02/22 20:30 03/02/22 21:15 03/02/22 21:45 Temperature 98.3 F 98.2 F 98.6 F Pulse Rate Pulse Rate [Right Pulse Oximeter] 84 86 85 Respiratory Rate 16 16 18 Blood Pressure Blood Pressure [Le ft Arm] 120/59 L 120/70 120/62 Pulse Oximetry 93 95 94 Oxygen Delivery Me thod Nasal Cannula Nasal Cannula Nasal Cannula Oxygen Flow Rate 2 2 2 03/02/22 22:15 03/03/22 01:00 03/02/22 23:00 Temperature 98.7 F 98.8 F 98.8 F Pulse Rate Pulse Rate [Right Pulse Oximeter] 90 86 86 Respiratory Rate 18 18 18 Blood Pressure Blood Pressure [Le ft Arm] 132/63 132/63 124/61 Pulse Oximetry 92 95 95 Oxygen Delivery Me thod Nasal Cannula Nasal Cannula Nasal Cannula Oxygen Flow Rate 2 2 2 03/03/22 02:38 03/03/22 00:00 03/03/22 01:00 Temperature 98.8 F 98.7 F 98.7 F Pulse Rate Pulse Rate [Right Pulse Oximeter] 92 94 97 Respiratory Rate 18 18 18 Blood Pressure Blood Pressure [Le ft Arm] 133/64 115/56 L 121/58 L Pulse Oximetry 95 94 93 Oxygen Delivery Me thod Nasal Cannula Nasal Cannula Nasal Cannula Oxygen Flow Rate 2 2 2 03/03/22 03:00 03/03/22 03:00 03/03/22 07:00 Temperature 98.3 F 99.0 F Pulse Rate 92 Pulse Rate [Right Pulse Oximeter] 96 87 Respiratory Rate 18 18 Blood Pressure Blood Pressure [Le ft Arm] 113/95 H 121/66 Pulse Oximetry 95 96 Oxygen Delivery Me thod Nasal Cannula Nasal Cannula Oxygen Flow Rate 2 1 03/03/22 07:00 03/03/22 09:45 03/03/22 09:45 Temperature 99.0 F Pulse Rate 85 Pulse Rate [Right Pulse Oximeter] 93 Respiratory Rate 18 16 Blood Pressure Blood Pressure [Le ft Arm] 121/66 Pulse Oximetry 96 96 Oxygen Delivery Me thod Nasal Cannula Nasal Cannula Oxygen Flow Rate 1 1.5 03/03/22 10:25 03/03/22 11:00 03/03/22 15:00 Temperature 98.9 F Pulse Rate 83 73 Pulse Rate [Right Pulse Oximeter] 85 Respiratory Rate 16 Blood Pressure Blood Pressure [Le ft Arm] 129/64 Pulse Oximetry 98 Oxygen Delivery Me thod Nasal Cannula Oxygen Flow Rate 1.5 03/03/22 15:00 03/03/22 15:00 Temperature 99.1 F Pulse Rate Pulse Rate [Right Pulse Oximeter] 83 83 Respiratory Rate 18 18 Blood Pressure Blood Pressure [Le ft Arm] 130/62 Pulse Oximetry 95 Oxygen Delivery Me thod Room Air Oxygen Flow Rate 1.5 Documenting provider has reviewed patient's vital signs: yes Labs Labs: Laboratory Results - last 24 hr 03/03/22 09:09 Sodium 134 L Potassium 4.6 Chloride 102 Carbon Dioxide 28 BUN 24 Creatinine 1.1 Estimated Creat Clear 66.15 Estimated GFR 69 Glucose 187 H Calcium 8.7 Total Bilirubin 0.9 AST 40 H ALT 26 Alkaline Phosphatase 64 Total Protein 6.9 Albumin 3.9
[2022-03-04] VITALS (8 sets, daily range): BP systolic 123–152; BP diastolic 63–87; PULSE 75–157; RESP 16–18; TEMP 36.9–38; O2SAT 92–96
[2022-03-04] MEDS: PIPERACILLIN/TAZOBACTAM 3.375 GM in 0.9 % SODIUM CHLORIDE Mini-bag 100 ML IVPB ×4 (02:39→20:46)
[2022-03-04] MEDS: HYDROmorphone 0.5 mg/0.5 ml inj IVP ×3 (02:46→15:00)
[2022-03-04] MEDS: LACTATED RINGERS 1000 ML 1,000 ML 75 ML IV (04:40)
[2022-03-04 06:52] LABS: Basophils Percent Auto 0.2 % (0.0-3.0); Eosinophils Percent Auto 0.5 % (0.0-7.0); Hematocrit 38.7 % (37.0-53.0); Hemoglobin* 12.8 gm/dL (13.5-17.5); Immature Granulocytes Pct Auto 0.3 %; Mean Corpuscular HGB Conc 33 gm/dL (32-36); Mean Corpuscular Hemoglobin 31 pg (26-34); Mean Corpuscular Volume 93 fL (80-100); RDW Coefficient of Variation % 12.5 % (11.5-15.5); Red Blood Count 4.15 m/uL (4.30-5.90); White Blood Count* 11.49 K/uL (4.50-11.00)
[2022-03-04 07:10] LABS: Chloride* 104 mmol/L (96-114); Potassium* 4.7 mmol/L (3.6-5.1); Sodium* 135 mmol/L (135-149)
[2022-03-04 07:12] LABS: Creatinine* 1.1 mg/dL (0.5-1.5); Est. Creatinine Clearance* 66.15; Estimated Glomerular Filt Rate 69 ml/min
[2022-03-04 07:13] LABS: Blood Urea Nitrogen* 27 mg/dL (7-30); Calcium* 8.5 mg/dL (8.4-10.6); Carbon Dioxide* 25 mmol/L (20-32); Glucose* 131 mg/dL (60-115)
[2022-03-04 07:34] LABS: Platelet Count* 280 K/uL (140-440)
[2022-03-04 07:35] LABS: Slide Review Reflex No
--- NOTE | 2022-03-04 08:53 | P.GSPN_ITS ---
Subjective Subjective Date Seen: 03/04/22 Interval history: Patient is doing well. He does complain of abdominal pain that is relieved with pain medication. He denies passing gas. He ambulated 2 times yesterday. NG tube with minimal amount of output. Exam Narrative: Exam Narrative: Abdomen is not distended, tender to palpation in epigastrium and right lower quadrant but not on the left. Surgical incisions are clean with intact minoo and no surrounding erythema. Const: Vital Signs, click to edit/add: Vital Signs - 24 hr 03/03/22 09:45 03/03/22 09:45 03/03/22 10:25 Temperature 99.0 F 98.9 F Pulse Rate Pulse Rate [Right Pulse Oximeter] 93 85 Respiratory Rate 18 16 16 Blood Pressure [Le ft Arm] 121/66 129/64 Pulse Oximetry 96 96 98 Oxygen Delivery Me thod Nasal Cannula Nasal Cannula Nasal Cannula Oxygen Flow Rate 1 1.5 1.5 03/03/22 11:00 03/03/22 15:00 03/03/22 15:00 Temperature Pulse Rate 83 73 Pulse Rate [Right Pulse Oximeter] 83 Respiratory Rate 18 Blood Pressure [Le ft Arm] Pulse Oximetry Oxygen Delivery Me thod Oxygen Flow Rate 03/03/22 15:00 03/03/22 19:00 03/03/22 20:21 Temperature 99.1 F 98.6 F Pulse Rate 75 Pulse Rate [Right Pulse Oximeter] 83 88 Respiratory Rate 18 18 Blood Pressure [Le ft Arm] 130/62 119/57 L Pulse Oximetry 95 96 Oxygen Delivery Me thod Room Air Room Air Oxygen Flow Rate 1.5 03/03/22 23:00 03/03/22 23:00 03/04/22 02:15 Temperature 99.1 F Pulse Rate 79 Pulse Rate [Right Pulse Oximeter] 85 75 Respiratory Rate 18 18 Blood Pressure [Le ft Arm] 136/67 Pulse Oximetry 94 Oxygen Delivery Me thod Room Air Oxygen Flow Rate 03/04/22 03:00 Temperature 99.2 F Pulse Rate Pulse Rate [Right Pulse Oximeter] 85 Respiratory Rate 18 Blood Pressure [Le ft Arm] 123/63 Pulse Oximetry 93 Oxygen Delivery Me thod Room Air Oxygen Flow Rate Progress Note: A&P Assessment and plan (1) S/P small bowel resection: Status: Acute Assessment and Plan: 77-year-old male s/p exploratory laparotomy and small-bowel resection POD 2. Patient is doing well overall. However he does not have return of bowel fun ction yet. We will continue with NPO and IV fluids. We will continue NG tube to suction. Patient needs to continue ambulating. I will start him on Lovenox for DVT prophylaxis.
[2022-03-04] MEDS: ENOXAPARIN 40 MG/0.4 ML INJ SUBCUT (09:41)
--- NOTE | 2022-03-04 16:28 | P.IMPN_ITS ---
Progress Note: A&P Assessment and plan (1) S/P small bowel resection: Status: Acute (2) Ischemic necrosis of small bowel: Problem details: Unknown cause for ischemia. Certainly patient has risk factors for vascular ischemia. Patient gives history that may represent intestinal angina about a month ago and even before that. Consider outpatient evaluation for mesentery ischemia Status: Acute (3) Abnormal echocardiogram: Problem details: 02/24/2022 1. Normal LV size, moderately increased wall thickness, normal global systolic function with an estimated EF of 55 - 60%. 2. Right ventricular cavity size is normal, global systolic RV function is normal. 3. Moderately enlarged left atrium. 4. 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 The aortic valve peak velocity is 4.4 m/s, the peak gradient is 76 mmHg, and the mean gradient is 45 mmHg. The aortic valve area is 0.85 cm?? with a dimensionless index of 0.20. The stroke volume index is 39.3 ml/m??. Note: the Doppler gradients are taken a non-PVC beat. 5. The mitral valve is sclerotic, trace mitral regurgitation. 6. Tricuspid valve is normal. 7. Normal estimated pulmonary pressures by tricuspid regurgitation velocity and right atrial pressure (23 mmHg plus RAP). 8. No pericardial effusion. Comparison Compared to prior exam of 01/20/2020: - Aortic stenosis has increased. Status: Acute (4) Chronic kidney disease: Problem details: Baseline creatinine 1.3. Monitor fluid and electrolytes. Status: Chronic (5) Morbid obesity: Status: Acute (6) Type 2 diabetes mellitus: Problem details: Hold oral medications. Levemir plus sliding scale Status: Chronic (7) HTN (hypertension): Problem details: Resume blood pressure medication as needed Status: Chronic (8) Aortic stenosis: Problem details: Nonrheumatic Not clearly symptomatic prior to this hospitalization. 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 The aortic valve peak velocity is 4.4 m/s, the peak gradient is 76 mmHg, and the mean gradient is 45 mmHg. The aortic valve area is 0.85 cm?? with a dimensionless index of 0.20. The stroke volume index is 39.3 ml/m??. Note: the Doppler gradients are taken a non-PVC beat. Status: Chronic Plan Continue in-hospital with supportive cares pending return of bowel function. Continue to monitor for complications. Patient is certainly at risk for a complicated recovery. Continue to monitor chronic medical problems. Time Spent With Patient Total time spent: Total time spent today is 30 minutes, 20 minutes in coordination care and di scussing with patient and other providers ongoing evaluation management of postoperative care with small-bowel obstruction Subjective Date Seen: 03/04/22 Interval history: 77-year-old male seen in followup of small bowel ischemia with small-bowel resection day 2. Patient reports that he had some increased pain last night but feels better today. He has no other concerns today. No shortness of breath. He is not aware of any fever. He has not passed gas yet. NG is in place. He has been up walking and reports that he gets quite fatigued with that. Exam Narrative: Exam Narrative: He is alert and appears in no distress. Mood and affect are bright. Respirations are clear to auscultation without wheezing rales or rhonchi. Cardiovascular: S1, S2, 2/6 systolic murmur. No gallop or rub. Abdomen is soft. Bowel sounds are present. He has mild tenderness. His incision is clean and dry without erythema or drainage. Const: Vital Signs, click to edit/add: Vital Signs - 24 hr 03/03/22 19:00 03/03/22 20:21 03/03/22 23:00 Temperature 98.6 F Pulse Rate 75 Pulse Rate [Right Pulse Oximeter] 88 85 Respiratory Rate 18 18 Blood Pressure [Le ft Arm] 119/57 L Pulse Oximetry 96 Oxygen Delivery Me thod Room Air 03/03/22 23:00 03/04/22 02:15 03/04/22 03:00 Temperature 99.1 F 99.2 F Pulse Rate 79 Pulse Rate [Right Pulse Oximeter] 75 85 Respiratory Rate 18 18 Blood Pressure [Le ft Arm] 136/67 123/63 Pulse Oximetry 94 93 Oxygen Delivery Ia thod Room Air Room Air 03/04/22 07:00 03/04/22 07:00 03/04/22 07:00 Temperature 100.4 F H Pulse Rate 77 Pulse Rate [Right Pulse Oximeter] 90 90 Respiratory Rate 16 16 Blood Pressure [Le ft Arm] 138/67 Pulse Oximetry 96 Oxygen Delivery Me thod Room Air 03/04/22 11:00 Temperature 100.4 F H Pulse Rate Pulse Rate [Right Pulse Oximeter] 84 Respiratory Rate 16 Blood Pressure [Le ft Arm] 138/87 Pulse Oximetry 96 Oxygen Delivery Me thod Room Air Documenting provider has reviewed patient's vital signs: yes Labs Labs: Laboratory Results - last 24 hr 03/04/22 03/04/22 06:05 06:05 WBC 11.49 H RBC 4.15 L Hgb 12.8 L Hct 38.7 MCV 93 MCH 31 MCHC 33 RDW Coeff of Adam 12.5 Plt Count 280 Neut % (Auto) 70.0 Lymph % (Auto) 19.0 L [place] % (Auto) 10.0 Eos % (Auto) 0.5 Baso % (Auto) 0.2 Neut # (Auto) 8.00 H Lymph # (Auto) 2.20 [place] # (Auto) 1.10 H Eos # (Auto) 0.10 Baso # (Auto) 0.00 Sodium 135 Potassium 4.7 Chloride 104 Carbon Dioxide 25 BUN 27 Creatinine 1.1 Estimated Creat Clear 66.15 Estimated GFR 69 Glucose 131 H Calcium 8.5
--- NOTE | 2022-03-04 19:55 | PC.NURSE ---
Nursing Care Hours: [id number] Pt this shift calm and cooperative with cares. Pt fatigued this morning d/t not getting good sleep per pt. Tremor noted in R arm while sleeping, then bilateral arms during cares. Pt states that tremors come intermittently and increase with illness or pain. Pain was 6/10, treated with Dilaudid. VSS, temporal temp remains at 100.4 all shift. NG tube re-taped to nose. Tube patent and draining yellow-brown output. Tele showed NSR in morning, pt had an episode of SVT lasting about 1 minute, followed by NSR with occasional PVCs. Hospitalist updated, no EKG ordered. IV patent. Pt voiding in urinal. Incision stapled and no SS of infection. Open to air, no drainage.
[2022-03-05] MEDS: LACTATED RINGERS 1000 ML 1,000 ML 75 ML IV (01:45)
[2022-03-05] MEDS: PIPERACILLIN/TAZOBACTAM 3.375 GM in 0.9 % SODIUM CHLORIDE Mini-bag 100 ML IVPB ×4 (02:27→20:36)
[2022-03-05 03:00] VITALS: BP 142/69; PULSE 78; PULSE 79; RESP 14; TEMP 37; O2SAT 95
[2022-03-05 07:00] VITALS: BP 145/70; PULSE 74; PULSE 81; RESP 21; TEMP 37.7; O2SAT 97
--- NOTE | 2022-03-05 07:39 | PC.NURSE ---
END OF SHIFT NOTE: PT PLEASANT AND COOPERATIVE WITH CARES. PT WITH NG PLACED TO LEFT NARE ON LIS. SUCTION NOT WORKING PROPERLY. CANISTER WAS REPLACED AND TUBING ELBOW REMOVED. NOW IN WORKING ORDER. NG HAD BROWN/GREEN OUTPUT OF 380ML NOC. NO SS REQUIRED THIS SHIFT.
[2022-03-05 07:59] LABS: Basophils Absolute Auto 0.02 K/uL (0.00-0.30); Basophils Percent Auto 0.2 % (0.0-3.0); Eosinophils Absolute Auto 0.13 K/uL (0.00-0.50); Eosinophils Percent Auto 1.5 % (0.0-7.0); Hemoglobin* 11.9 gm/dL (13.5-17.5); Immature Granulocytes Abs Auto 0.01 K/uL (0.00-0.30); Immature Granulocytes Pct Auto 0.1 %; Lymphocytes Absolute Auto 2.46 K/uL (0.90-2.90); Lymphocytes Percent Auto 27.6 % (20-44); Mean Corpuscular HGB Conc 33 gm/dL (32-36); Mean Corpuscular Hemoglobin 30 pg (26-34); Mean Corpuscular Volume 92 fL (80-100); Monocytes Percent Auto 8.3 % (0.0-11.0); Neutrophils Absolute Auto 5.54 K/uL (1.7-7.0); Neutrophils Percent Auto 62.3 % (42.0-72.0); Platelet Count* 199 K/uL (140-440); RDW Coefficient of Variation % 12.2 % (11.5-15.5); Red Blood Count 3.92 m/uL (4.30-5.90)
[2022-03-05 08:02] LABS: Slide Review Reflex No
[2022-03-05 08:06] LABS: Chloride* 106 mmol/L (96-114); Potassium* 3.8 mmol/L (3.6-5.1); Sodium* 138 mmol/L (135-149)
[2022-03-05 08:09] LABS: Creatinine* 0.9 mg/dL (0.5-1.5); Est. Creatinine Clearance* 72.76; Estimated Glomerular Filt Rate 87 ml/min
[2022-03-05 08:10] LABS: Blood Urea Nitrogen* 21 mg/dL (7-30); Calcium* 8.5 mg/dL (8.4-10.6); Carbon Dioxide* 25 mmol/L (20-32); Glucose* 93 mg/dL (60-115)
[2022-03-05 08:28] LABS: C Reactive Protein* 13.7 mg/dL (0.5-1.0)
[2022-03-05] MEDS: ENOXAPARIN 40 MG/0.4 ML INJ SUBCUT (08:55)
--- NOTE | 2022-03-05 09:54 | PM.GSPN ---
Subjective Subjective Date Seen: 03/05/22 Interval history: Patient is doing well today. His NG tube was not function most of the yesterday and he felt bloated. Once the NG tube was fixed and was suctioning, his abdominal pain felt better. He passed gas 1 time today. He denies any nausea vomiting. He was walking yesterday. Exam Narrative: Exam Narrative: Abdomen is soft, not distended, minimal discomfort to palpation in epigastrium, significantly better than yesterday. His midline laparotomy incision is with intact minoo. There is faint erythema around the minoo but no evidence of cellulitis. Const: Vital Signs, click to edit/add: Vital Signs - 24 hr 03/04/22 11:00 03/04/22 15:00 03/04/22 15:00 Temperature 100.4 F H 100.4 F H Pulse Rate Pulse Rate [Right Pulse Oximeter] 84 91 91 Respiratory Rate 16 16 16 Blood Pressure [Le ft Arm] 138/87 132/70 Pulse Oximetry 96 94 Oxygen Delivery Me thod Room Air Room Air 03/04/22 15:00 03/04/22 11:00 03/04/22 16:55 Temperature Pulse Rate 83 79 157 H Pulse Rate [Right Pulse Oximeter] Respiratory Rate Blood Pressure [Le ft Arm] Pulse Oximetry Oxygen Delivery Me thod 03/04/22 20:30 03/04/22 23:00 03/04/22 23:00 Temperature 98.5 F Pulse Rate 75 Pulse Rate [Right Pulse Oximeter] 93 82 Respiratory Rate 18 16 Blood Pressure [Le ft Arm] 141/78 H Pulse Oximetry 93 Oxygen Delivery Co thod Room Air 03/04/22 23:00 03/05/22 03:00 03/05/22 03:00 Temperature 98.7 F 98.6 F Pulse Rate 78 Pulse Rate [Right Pulse Oximeter] 82 79 Respiratory Rate 16 14 Blood Pressure [Le ft Arm] 152/79 H 142/69 H Pulse Oximetry 92 95 Oxygen Delivery Me thod Room Air Room Air Progress Note: A&P Assessment and plan (1) S/P exploratory laparotomy: Status: Acute Assessment and Plan: 77-year-old male s/p exploratory laparotomy and small-bowel resection POD 3. Will clamp patient's NG tube and if he is doing well after 1:00 p.m., okay to DC his NG tube. Patient pass gas only once so we will hold off on advancing his diet until he passes more gas. Patient will continue ambulating. He is on DVT prophylaxis.
[2022-03-05] MEDS: 5 % DEXTROSE IN LAC RINGER'S 1,000 ML 75 ML IV (10:00)
--- NOTE | 2022-03-05 10:09 | PM.IMPN1 ---
Progress Note: A&P Assessment and plan (1) S/P small bowel resection: Problem details: Per surgery clamp NG tube this morning. If low residual can remove this afternoon. Status: Acute (2) Disorder of fluid or electrolyte: Problem details: Patient's weight is up. IV fluids decreased. May need diuretic in the next day. Stop IV fluids when able to take p.o. Status: Acute (3) Ischemic necrosis of small bowel: Problem details: Unknown cause for ischemia. Certainly patient has risk factors for vascular ischemia. Patient gives history that may represent intestinal angina about a month ago and even before that. Consider outpatient evaluation for mesentery ischemia Status: Acute (4) Abnormal echocardiogram: Problem details: 02/24/2022 1. Normal LV size, moderately increased wall thickness, normal global systolic function with an estimated EF of 55 - 60%. 2. Right ventricular cavity size is normal, global systolic RV function is normal. 3. Moderately enlarged left atrium. 4. 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 The aortic valve peak velocity is 4.4 m/s, the peak gradient is 76 mmHg, and the mean gradient is 45 mmHg. The aortic valve area is 0.85 cm?? with a dimensionless index of 0.20. The stroke volume index is 39.3 ml/m??. Note: the Doppler gradients are taken a non-PVC beat. 5. The mitral valve is sclerotic, trace mitral regurgitation. 6. Tricuspid valve is normal. 7. Normal estimated pulmonary pressures by tricuspid regurgitation velocity and right atrial pressure (23 mmHg plus RAP). 8. No pericardial effusion. Comparison Compared to prior exam of 01/20/2020: - Aortic stenosis has increased. Status: Acute (5) H/O cornea transplant: Problem details: Continue prednisolone eyedrops Status: Acute (6) Type 2 diabetes mellitus: Problem details: Blood sugar is 80 this morning. Stop Levemir. Continue sliding scale. Resume metformin when taking oral medicine. Switch to D5 LR to avoid hypoglycemia. Stop IV fluids when able to take p.o. fluids. Status: Chronic (7) HTN (hypertension): Problem details: Blood pressure acceptable. Resume blood pressure medication as needed Status: Chronic Plan Continue in hospital for management of recovery from surgery. Monitor for complications. Time Spent With Patient Total time spent: Total time spent today is 35 minutes, 20 minutes in coordination of care discussing with patient, and other providers management of fluids, glucose, postoperative care Subjective Date Seen: 03/05/22 Interval history: 77-year-old male seen in followup of small bowel resection for ischemic bowel. Reports feeling better today. He has been able to pass gas. No shortness of breath. Abdominal pain is better. Exam Narrative: Exam Narrative: He is alert and appears in no distress. He is oriented to his circumstances. Respirations are clear to auscultation. Cardiovascular: S1, S2, 2/6 systolic murmur. Abdomen: Bowel sounds are present. Abdomen is soft without significant tenderness. Abdominal incision is clean and dry. Extremities with trace edema. Const: Vital Signs, click to edit/add: Vital Signs - 24 hr 03/04/22 11:00 03/04/22 15:00 03/04/22 15:00 Temperature 100.4 F H 100.4 F H Pulse Rate Pulse Rate [Right Pulse Oximeter] 84 91 91 Respiratory Rate 16 16 16 Blood Pressure [Le ft Arm] 138/87 132/70 Pulse Oximetry 96 94 Oxygen Delivery Me thod Room Air Room Air 03/04/22 15:00 03/04/22 11:00 03/04/22 16:55 Temperature Pulse Rate 83 79 157 H Pulse Rate [Right Pulse Oximeter] Respiratory Rate Blood Pressure [Le ft Arm] Pulse Oximetry Oxygen Delivery Me thod 03/04/22 20:30 03/04/22 23:00 03/04/22 23:00 Temperature 98.5 F Pulse Rate 75 Pulse Rate [Right Pulse Oximeter] 93 82 Respiratory Rate 18 16 Blood Pressure [Le ft Arm] 141/78 H Pulse Oximetry 93 Oxygen Delivery Me thod Room Air 03/04/22 23:00 03/05/22 03:00 03/05/22 03:00 Temperature 98.7 F 98.6 F Pulse Rate 78 Pulse Rate [Right Pulse Oximeter] 82 79 Respiratory Rate 16 14 Blood Pressure [Le ft Arm] 152/79 H 142/69 H Pulse Oximetry 92 95 Oxygen Delivery Me thod Room Air Room Air Documenting provider has reviewed patient's vital signs: yes Labs Labs: Laboratory Results - last 24 hr 03/05/22 03/05/22 07:45 07:45 WBC 8.90 RBC 3.92 L Hgb 11.9 L Hct 36.0 L MCV 92 MCH 30 MCHC 33 RDW Coeff of Adam 12.2 Plt Count 199 Neut % (Auto) 62.3 Lymph % (Auto) 27.6 [place] % (Auto) 8.3 Eos % (Auto) 1.5 Baso % (Auto) 0.2 Neut # (Auto) 5.54 Lymph # (Auto) 2.46 [place] # (Auto) 0.70 Eos # (Auto) 0.13 Baso # (Auto) 0.02 Sodium 138 Potassium 3.8 Chloride 106 Carbon Dioxide 25 BUN 21 Creatinine 0.9 Estimated Creat Clear 72.76 Estimated GFR 87 Glucose 93 Calcium 8.5 C-Reactive Protein 13.7 H
[2022-03-05 11:00] VITALS: BP 139/75; PULSE 83; RESP 21; TEMP 36.8; O2SAT 97
[2022-03-05] MEDS: prednisoLONE acetate 1 % DROPS 1 DROP EYE-BOTH (13:00)
[2022-03-05 15:00] VITALS: BP 155/71; PULSE 70; RESP 20; O2SAT 98
--- NOTE | 2022-03-05 18:34 | PC.NURSE ---
Nursing Care Hours: [id number] Pt this shift calm and cooperative with cares. Alert and oriented. Per pt, pain decreased from yesterday, able to sleep well. Tremors decreased and pt stable on feet without walker. No pain medication needed. Pt passed gas and had a loose BM. NG clamped from morning until about 1300, tolerated well. made aware and verbal order given to DC NG tube. Pt tolerated procedure well, no trauma noted. Pt took a shower today. Advanced diet to clears, pt tolerated 2 cups of broth. IV patent. Incisions open to air, no SS of infection. IS at 2000 with good effort. Tele shows NSR. No insulin given per sliding scale and Detemir parameters.
[2022-03-05 19:02] VITALS: BP 157/73; PULSE 69; RESP 18; TEMP 37.1; O2SAT 100
[2022-03-05 23:00] VITALS: BP 145/75; PULSE 66; RESP 18; TEMP 36.8; O2SAT 95
--- NOTE | 2022-03-05 23:16 | PC.NURSE ---
Shift [id number]- Patient denies pain. He is up independently in room and SBA in hallway. Denies nausea. Incision to abdomen with minoo, no drainage, open to air.
[2022-03-06] MEDS: 5 % DEXTROSE IN LAC RINGER'S 1,000 ML 75 ML IV (00:20)
[2022-03-06 02:29] VITALS: BP 146/70; PULSE 70; RESP 18; TEMP 36.8; O2SAT 95
[2022-03-06] MEDS: PIPERACILLIN/TAZOBACTAM 3.375 GM in 0.9 % SODIUM CHLORIDE Mini-bag 100 ML IVPB ×4 (02:34→23:42)
--- NOTE | 2022-03-06 05:51 | PC.NURSE ---
[id number]: patient up ad michelle, appears to have slept well overnight. c/o pain with cough but states it goes away when i stop coughing declines pain meds, ice pack to abd. surgical site [employer], c/d/i. no c/o nausea. patient passing flatus and states he passed small amount of stool.
[2022-03-06 07:00] VITALS: BP 147/67; PULSE 53; PULSE 87; RESP 18; TEMP 37.3; O2SAT 94
[2022-03-06] MEDS: ENOXAPARIN 40 MG/0.4 ML INJ SUBCUT (08:15)
[2022-03-06 08:44] LABS: Basophils Absolute Auto 0.01 K/uL (0.00-0.30); Basophils Percent Auto 0.2 % (0.0-3.0); Eosinophils Absolute Auto 0.21 K/uL (0.00-0.50); Eosinophils Percent Auto 3.2 % (0.0-7.0); Hematocrit 38.7 % (37.0-53.0); Hemoglobin* 12.9 gm/dL (13.5-17.5); Immature Granulocytes Abs Auto 0.01 K/uL (0.00-0.30); Immature Granulocytes Pct Auto 0.2 %; Lymphocytes Percent Auto 31.6 % (20-44); Mean Corpuscular HGB Conc 33 gm/dL (32-36); Mean Corpuscular Hemoglobin 31 pg (26-34); Mean Corpuscular Volume 92 fL (80-100); Monocytes Percent Auto 8.6 % (0.0-11.0); Neutrophils Absolute Auto 3.74 K/uL (1.7-7.0); Neutrophils Percent Auto 56.2 % (42.0-72.0); Platelet Count* 228 K/uL (140-440); RDW Coefficient of Variation % 12.1 % (11.5-15.5); Red Blood Count 4.23 m/uL (4.30-5.90); White Blood Count* 6.64 K/uL (4.50-11.00)
[2022-03-06 08:47] LABS: Slide Review Reflex No
[2022-03-06 08:57] LABS: Chloride* 106 mmol/L (96-114); Potassium* 3.8 mmol/L (3.6-5.1); Sodium* 139 mmol/L (135-149)
[2022-03-06 09:00] LABS: Blood Urea Nitrogen* 19 mg/dL (7-30); Calcium* 8.7 mg/dL (8.4-10.6); Carbon Dioxide* 26 mmol/L (20-32); Est. Creatinine Clearance* 72.76; Estimated Glomerular Filt Rate 77 ml/min; Glucose* 158 mg/dL (60-115)
--- NOTE | 2022-03-06 10:58 | PM.IMPN1 ---
Progress Note: A&P Assessment and plan (1) S/P small bowel resection: Problem details: Doing well. NG tube is out. Advancing diet. Status: Acute (2) Disorder of fluid or electrolyte: Problem details: Patient is diuresing. Saline lock IV. Status: Acute (3) Ischemic necrosis of small bowel: Problem details: Unknown cause for ischemia. Certainly patient has risk factors for vascular ischemia. Patient gives history that may represent intestinal angina about a month ago and even before that. Consider outpatient evaluation for mesentery ischemia Status: Acute (4) Abnormal echocardiogram: Problem details: 02/24/2022 1. Normal LV size, moderately increased wall thickness, normal global systolic function with an estimated EF of 55 - 60%. 2. Right ventricular cavity size is normal, global systolic RV function is normal. 3. Moderately enlarged left atrium. 4. 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 The aortic valve peak velocity is 4.4 m/s, the peak gradient is 76 mmHg, and the mean gradient is 45 mmHg. The aortic valve area is 0.85 cm?? with a dimensionless index of 0.20. The stroke volume index is 39.3 ml/m??. Note: the Doppler gradients are taken a non-PVC beat. 5. The mitral valve is sclerotic, trace mitral regurgitation. 6. Tricuspid valve is normal. 7. Normal estimated pulmonary pressures by tricuspid regurgitation velocity and right atrial pressure (23 mmHg plus RAP). 8. No pericardial effusion. Comparison Compared to prior exam of 01/20/2020: - Aortic stenosis has increased. Status: Acute (5) H/O cornea transplant: Problem details: Continue prednisolone eyedrops Status: Acute (6) Type 2 diabetes mellitus: Problem details: Resume metformin . Continue sliding scale insulin. Status: Chronic (7) HTN (hypertension): Problem details: Blood pressure acceptable. Resume blood pressure medication as needed Status: Chronic Plan Continue to advance diet and manage other medical problems. Anticipate discharge when tolerating diet well. Time Spent With Patient Total time spent: Total time spent today is 30 minutes, 20 minutes in coordination of care and discussing with other providers management of postoperative care Subjective Date Seen: 03/06/22 Interval history: 77-year-old male seen in followup of small bowel obstruction with ischemic bowel. Status post bowel resection. NG was removed yesterday. He reports doing well. No bloating or nausea. Still passing gas. Had bowel movement overnight. Just beginning full liquid diet. Reports no respiratory problems. Pain is getting better. Ambulating in the [place] well with therapy. Exam Narrative: Exam Narrative: He is alert, pleasant in no distress. He is observed to walk well in the hallway. Breathing is unlabored. Respirations are clear to auscultation. Cardiovascular: S1, S2, 2/6 systolic murmur. Abdomen: Bowel sounds active. Abdomen is soft with minimal midline tenderness near his incision. Extremities with minimal edema Const: Vital Signs, click to edit/add: Vital Signs - 24 hr 03/05/22 11:00 03/05/22 15:00 03/05/22 15:00 Temperature 98.3 F Pulse Rate 70 Pulse Rate [Right Pulse Oximeter] 83 70 Respiratory Rate 21 20 Blood Pressure [Le ft Arm] 139/75 Pulse Oximetry 97 Oxygen Delivery Me thod Room Air 03/05/22 15:00 03/05/22 19:02 03/05/22 23:00 Temperature 98.7 F Pulse Rate 66 Pulse Rate [Right Pulse Oximeter] 70 69 Respiratory Rate 20 18 Blood Pressure [Le ft Arm] 155/71 H 157/73 H Pulse Oximetry 98 100 Oxygen Delivery Me thod Room Air Room Air 03/05/22 23:00 03/05/22 23:00 03/06/22 02:29 Temperature 98.3 F 98.3 F Pulse Rate Pulse Rate [Right Pulse Oximeter] 66 66 70 Respiratory Rate 18 18 18 Blood Pressure [Le ft Arm] 145/75 H 146/70 H Pulse Oximetry 95 95 Oxygen Delivery Me thod Room Air Room Air Documenting provider has reviewed patient's vital signs: yes Labs Labs: Laboratory Results - last 24 hr 03/06/22 03/06/22 08:32 08:32 WBC 6.64 RBC 4.23 L Hgb 12.9 L Hct 38.7 MCV 92 MCH 31 MCHC 33 RDW Coeff of Adam 12.1 Plt Count 228 Neut % (Auto) 56.2 Lymph % (Auto) 31.6 [place] % (Auto) 8.6 Eos % (Auto) 3.2 Baso % (Auto) 0.2 Neut # (Auto) 3.74 Lymph # (Auto) 2.10 [place] # (Auto) 0.60 Eos # (Auto) 0.21 Baso # (Auto) 0.01 Sodium 139 Potassium 3.8 Chloride 106 Carbon Dioxide 26 BUN 19 Creatinine 1.0 Estimated Creat Clear 72.76 Estimated GFR 77 Glucose 158 H Calcium 8.7
[2022-03-06 11:00] VITALS: BP 123/92; PULSE 75; RESP 18; TEMP 36.7; O2SAT 99
--- NOTE | 2022-03-06 11:01 | PM.GSPN ---
Subjective Subjective Date Seen: 03/06/22 Interval history: Patient is doing well. He denies abdominal pain. He tolerated clears yesterday after his NG came out. He continues to pass gas and had a bowel movement yesterday. He is ambulating. Exam Narrative: Exam Narrative: Abdomen is soft, not distended, not tender to palpation. The midline laparotomy incision is with intact minoo with faint pink skin appearance around the minoo but no obvious cellulitis. Const: Vital Signs, click to edit/add: Vital Signs - 24 hr 03/05/22 15:00 03/05/22 15:00 03/05/22 15:00 Temperature Pulse Rate 70 Pulse Rate [Right Pulse Oximeter] 70 70 Respiratory Rate 20 20 Blood Pressure [Le ft Arm] 155/71 H Pulse Oximetry 98 Oxygen Delivery Me thod Room Air 03/05/22 19:02 03/05/22 23:00 03/05/22 23:00 Temperature 98.7 F Pulse Rate 66 Pulse Rate [Right Pulse Oximeter] 69 66 Respiratory Rate 18 18 Blood Pressure [Le ft Arm] 157/73 H Pulse Oximetry 100 Oxygen Delivery Me thod Room Air 03/05/22 23:00 03/06/22 02:29 Temperature 98.3 F 98.3 F Pulse Rate Pulse Rate [Right Pulse Oximeter] 66 70 Respiratory Rate 18 18 Blood Pressure [Le ft Arm] 145/75 H 146/70 H Pulse Oximetry 95 95 Oxygen Delivery Me thod Room Air Room Air Progress Note: A&P Assessment and plan (1) S/P small bowel resection: Problem details: Doing well. NG tube is out. Advancing diet. Status: Acute (2) S/P exploratory laparotomy: Status: Acute Assessment and Plan: 77-year-old male s/p exploratory laparotomy and small-bowel resection for ischemic bowel POD 4. Patient can slowly advance his diet as tolerated. I discussed with the patient that he should eat small amounts throughout the day instead of large meals. If patient continues to do well, he could either be discharged tonight or tomorrow morning. Follow up in clinic with me in 2 weeks. Patient has been on antibiotics since his admission. However, I will send him home with Augmentin given the faint pink appearance of his skin near the minoo.
[2022-03-06] MEDS: METFORMIN 500 MG TABLET PO ×2 (13:24→18:19)
[2022-03-06 15:00] VITALS: PULSE 60; PULSE 75; RESP 18
[2022-03-06] MEDS: HYDROCODONE-ACETAMIN 5-325 MG 1 TAB PO (18:18)
[2022-03-06 21:00] VITALS: BP 155/84; PULSE 74; RESP 16; TEMP 37.2; O2SAT 98
--- NOTE | 2022-03-06 21:32 | PC.NURSE ---
Nursing Care Hours: [id number] Pt this shift calm and cooperative, alert and oriented. Independent in room and walking the halls frequently. Tolerated full liquid diet, first regular meal at dinner. After dinner, c/o pain 4/10, norco given. IV in left hand leaking, new IV placed in L AC, tolerated well. SL outside of ABX times. Tele shows NSR with frequent PVC's. Incision on abdomen CDI, no drainage or odor, some redness at midline. 2 units of insulin given at evening for BS 161
[2022-03-06 23:00] VITALS: BP 121/61; PULSE 67; RESP 16; TEMP 36.8; O2SAT 96
[2022-03-07 03:00] VITALS: BP 159/72; PULSE 69; RESP 16; TEMP 36.9; O2SAT 95
[2022-03-07 03:35] VITALS: PULSE 67
[2022-03-07] MEDS: PIPERACILLIN/TAZOBACTAM 3.375 GM in 0.9 % SODIUM CHLORIDE Mini-bag 100 ML IVPB (05:51)
[2022-03-07 06:47] LABS: Basophils Absolute Auto 0.02 K/uL (0.00-0.30); Basophils Percent Auto 0.3 % (0.0-3.0); Eosinophils Absolute Auto 0.31 K/uL (0.00-0.50); Hematocrit 32.7 % (37.0-53.0); Immature Granulocytes Abs Auto 0.01 K/uL (0.00-0.30); Immature Granulocytes Pct Auto 0.2 %; Lymphocytes Absolute Auto 2.09 K/uL (0.90-2.90); Lymphocytes Percent Auto 33.5 % (20-44); Mean Corpuscular HGB Conc 34 gm/dL (32-36); Mean Corpuscular Hemoglobin 31 pg (26-34); Mean Corpuscular Volume 91 fL (80-100); Monocytes Percent Auto 11.2 % (0.0-11.0); Neutrophils Absolute Auto 3.11 K/uL (1.7-7.0); Neutrophils Percent Auto 49.8 % (42.0-72.0); Platelet Count* 203 K/uL (140-440); White Blood Count* 6.24 K/uL (4.50-11.00)
[2022-03-07 06:55] LABS: Chloride* 108 mmol/L (96-114); Potassium* 3.8 mmol/L (3.6-5.1); Sodium* 137 mmol/L (135-149)
[2022-03-07 06:58] LABS: Blood Urea Nitrogen* 14 mg/dL (7-30); Carbon Dioxide* 25 mmol/L (20-32); Creatinine* 0.9 mg/dL (0.5-1.5); Est. Creatinine Clearance* 72.76; Estimated Glomerular Filt Rate 87 ml/min; Slide Review Reflex No
[2022-03-07 06:59] LABS: Calcium* 8.2 mg/dL (8.4-10.6); Glucose* 149 mg/dL (60-115)
[2022-03-07 07:33] VITALS: PULSE 62
[2022-03-07 07:35] VITALS: BP 154/83; PULSE 96; RESP 18; TEMP 36.8; O2SAT 96
--- NOTE | 2022-03-07 08:11 | PC.NURSE ---
END OF SHIFT NOTE: PT PLEASANT AND COOPERATIVE. VSS ON RA; AFEBRILE. PT RECEIVED 2UNITS S/S FOR BG OF 178. AMBULATES INDEPENDENTLY. DENIES CP, SOB, N/V. UNEVENTFUL NIGHT.
[2022-03-07] MEDS: ENOXAPARIN 40 MG/0.4 ML INJ SUBCUT (08:58)
[2022-03-07] MEDS: METFORMIN 500 MG TABLET PO (08:59)
[2022-03-07] MEDS: prednisoLONE acetate 1 % DROPS 1 DROP EYE-BOTH (09:00)
--- NOTE | 2022-03-07 09:02 | P.DS_ITS ---
DS: Providers Provider Date Seen: 03/07/22 Date of admission: 03/02/22 20:12 Primary care physician: Rita Gutierrez MD Admitting Clinician: Cleo Maurer MD Consults: 03/03/22 11:02 Consult to Physical Therapy [CONS] Routine Comment: Reason(s) for PT Consult:: Evaluate and Treat Any Restrictions?:: No Restrictions Attending Physician on discharge: Ericka Rivero MD DS: Diagnosis Discharge Diagnosis (1) S/P small bowel resection: Status: Acute (2) S/P exploratory laparotomy: Status: Acute DS: Summary Hospital Course Hospital Course: 77-year-old male admitted to the hospital with abdominal pain. Time of admission CT showed small bowel obstruction with possible ischemic bowel. He had pneumatosis intestinalis. He was taken to the operating room by Dr. Maurer where he had a small-bowel resection. A short segment of bowel was found to be ischemic. The cause of the ischemia is unknown. Postoperatively he has done well. He has return of bowel function. He has been able to eat. His otherwise doing well without obvious postoperative complications. Chronic medical problems have been generally doing well. His blood pressure and diabetes medicines have been reduced as blood sugar and blood pressure have been relatively well controlled with minimal medicine Time Spent with Patient Time attestation: Total time spent providing and/or coordinating discharge services: Exam Narrative: Exam Narrative: Abdomen: Soft, not distended, not tender to palpation. There is a staple at the left upper quadrant laparoscopic incision and intact minoo at the laparotomy incision. There is minimal faint erythema near the umbilicus near the minoo. Const: Vital Signs, click to edit/add: Vital Signs - 24 hr 03/06/22 11:00 03/06/22 15:00 03/06/22 15:00 Temperature 98.1 F Pulse Rate 60 Pulse Rate [Right Pulse Oximeter] 75 75 Respiratory Rate 18 18 Blood Pressure [Le ft Arm] 123/92 H Pulse Oximetry 99 Oxygen Delivery Me thod Room Air 03/06/22 21:00 03/06/22 23:00 03/06/22 23:00 Temperature 99.0 F 98.3 F Pulse Rate Pulse Rate [Right Pulse Oximeter] 74 67 67 Respiratory Rate 16 16 16 Blood Pressure [Le ft Arm] 155/84 H 121/61 Pulse Oximetry 98 96 Oxygen Delivery Me thod Room Air Room Air 03/07/22 03:35 03/07/22 03:00 03/07/22 07:33 Temperature 98.5 F Pulse Rate 67 62 Pulse Rate [Right Pulse Oximeter] 69 Respiratory Rate 16 Blood Pressure [Le ft Arm] 159/72 H Pulse Oximetry 95 Oxygen Delivery Me thod Room Air DS: Data Data Completed and Pending Labs on day of discharge: Labs from last 24 hours 03/07/22 03/07/22 03/06/22 05:47 05:47 08:32 WBC 6.24 RBC 3.60 L Hgb 11.0 L Hct 32.7 L MCV 91 MCH 31 MCHC 34 RDW Coeff of Adam 12.0 Plt Count 203 Neut % (Auto) 49.8 Lymph % (Auto) 33.5 [place] % (Auto) 11.2 H Eos % (Auto) 5.0 Baso % (Auto) 0.3 Neut # (Auto) 3.11 Lymph # (Auto) 2.09 [place] # (Auto) 0.70 Eos # (Auto) 0.31 Baso # (Auto) 0.02 Sodium 137 139 Potassium 3.8 3.8 Chloride 108 106 Carbon Dioxide 25 26 BUN 14 19 Creatinine 0.9 1.0 Estimated Creat Clear 72.76 72.76 Estimated GFR 87 77 Glucose 149 H 158 H Calcium 8.2 L 8.7 Discharge Plan Discharge Disposition: Home, Self-Care Date of Admission: 03/02/22 20:12 Attending Provider on Discharge: Cleo Maurer Primary Care Provider: Rita Gutierrez Condition: Stable Anticipated Discharge Date/Time: 03/06/22 11:04 Discharge Medications: New amoxicillin-pot clavulanate [Augmentin] 500-125 mg tablet 1 tab PO BID Qty: 10 0RF Continued furosemide 20 mg tablet 20 mg PO DAILY metformin 500 mg tablet extended release 24 hr 1,000 mg PO BIDWM aspirin [Adult Aspirin Regimen] 81 mg tablet,delayed release (DR/EC) 81 mg PO DAILY prednisolone acetate 1 % drops,suspension 1 drp ophthalmic (eye) Q48H Label Comments: SHAKE LIQUID AND INSTILL 1 DROP IN BOTH EYES EVERY OTHER DAY DIRECTED Rx Instructions: USES ON EVEN DAYS Changed atorvastatin 10 mg tablet 20 mg PO DAILY Qty: 60 0RF amlodipine 10 mg tablet 5 mg PO DAILY Qty: 30 0RF lisinopril 40 mg tablet 20 mg PO DAILY Qty: 30 0RF Discontinued glipizide 10 mg tablet 10 mg PO BIDWM Discharge Orders: Discharge Order (Routine); Ordered 03/07/22 Ordered By: Cleo Maurer Consulting provider completed their portion of the discharge: Yes Patient Education: Amoxicillin/Clavulanate Potassium (By mouth) (Augmentin, Augmentin..., Bowel Resection (DC) Additional Instructions: I recommend that you reduce your blood pressure medicine, lisinopril and amlodipine. Cut each of these medicines in half until you see your doctor next week. I recommend you stop taking glipizide for diabetes until you see your doctor. Activity Level: No strenuous activity Activity Detail: No strenuous activity or lifting more than 15-20 lbs for 4-6 weeks. Follow Up Appointments: Cleo Maurer MD [Staff Physician] - 03/21/22 1:00 pm (Two weeks [facility] clinic) Rita Gutierrez MD [Primary Care Provider] - 03/14/22 1:25 pm (Following Dr. Gutierrez's appointment, you have a nurse appointment @ 2:00 for staple removal. ) [facility] Discharge Comments: Patient should have nurse only appointment on MondayMarch 14 for staple removal.
--- NOTE | 2022-03-07 09:08 | PM.DS1 ---
DS: Providers Provider Date Seen: 03/07/22 Date of admission: 03/02/22 20:12 Primary care physician: Rita Gutierrez MD Admitting Clinician: Cleo Maurer MD Date of Discharge: 03/07/22 DS: Diagnosis Discharge Diagnosis (1) S/P small bowel resection: Status: Acute (2) Ischemic necrosis of small bowel: Status: Acute Problem details: Unknown cause for ischemia. Certainly patient has risk factors for vascular ischemia. Consider outpatient evaluation for mesenteric ischemia (3) Abnormal echocardiogram: Status: Acute Problem details: 02/24/2022 1. Normal LV size, moderately increased wall thickness, normal global systolic function with an estimated EF of 55 - 60%. 2. Right ventricular cavity size is normal, global systolic RV function is normal. 3. Moderately enlarged left atrium. 4. 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 The aortic valve peak velocity is 4.4 m/s, the peak gradient is 76 mmHg, and the mean gradient is 45 mmHg. The aortic valve area is 0.85 cm?? with a dimensionless index of 0.20. The stroke volume index is 39.3 ml/m??. Note: the Doppler gradients are taken a non-PVC beat. 5. The mitral valve is sclerotic, trace mitral regurgitation. 6. Tricuspid valve is normal. 7. Normal estimated pulmonary pressures by tricuspid regurgitation velocity and right atrial pressure (23 mmHg plus RAP). 8. No pericardial effusion. Comparison Compared to prior exam of 01/20/2020: - Aortic stenosis has increased. (4) Chronic kidney disease: Status: Chronic Problem details: Baseline creatinine 1.3. (5) Morbid obesity: Status: Acute (6) Type 2 diabetes mellitus: Status: Chronic Problem details: Blood sugars well controlled. Metformin resumed. Glyburide held pending outpatient followup (7) HTN (hypertension): Status: Chronic Problem details: Patient has been off most blood pressure medicines during his hospital stay. Blood pressures are fairly well-controlled. At discharge he will be discharged on half doses of lisinopril and amlodipine pending outpatient followup (8) Aortic stenosis: Status: Chronic Problem details: Nonrheumatic Not clearly symptomatic prior to this hospitalization. 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 The aortic valve peak velocity is 4.4 m/s, the peak gradient is 76 mmHg, and the mean gradient is 45 mmHg. The aortic valve area is 0.85 cm?? with a dimensionless index of 0.20. The stroke volume index is 39.3 ml/m??. Note: the Doppler gradients are taken a non-PVC beat. DS: Summary Hospital Course Hospital Course: 77-year-old male admitted to the hospital with abdominal pain. Time of admission CT showed small bowel obstruction with possible ischemic bowel. He had pneumatosis intestinalis. He was taken to the operating room by Dr. Maurer where he had a small-bowel resection. A short segment of bowel was found to be ischemic. The cause of the ischemia is unknown. Postoperatively he has done well. He has return of bowel function. He has been able to eat. His otherwise doing well without obvious postoperative complications. Chronic medical problems have been generally doing well. His blood pressure and diabetes medicines have been reduced as blood sugar and blood pressure have been relatively well controlled with minimal medicine Status at Discharge Cognitive/behavioral status at discharge: Back to baseline Time Spent with Patient Time attestation: Total time spent providing and/or coordinating discharge services: 35 minutes Exam Narrative: Exam Narrative: He is alert and appears in no distress. Breathing is unlabored. Abdomen is soft. Minimal erythema on the his wound edges around the umbilicus. No drainage. Minimal tenderness. Const: Vital Signs, click to edit/add: Vital Signs - 24 hr 03/06/22 11:00 03/06/22 15:00 03/06/22 15:00 Temperature 98.1 F Pulse Rate 60 Pulse Rate [Right Pulse Oximeter] 75 75 Respiratory Rate 18 18 Blood Pressure [Le ft Arm] 123/92 H Pulse Oximetry 99 Oxygen Delivery Me thod Room Air 03/06/22 21:00 03/06/22 23:00 03/06/22 23:00 Temperature 99.0 F 98.3 F Pulse Rate Pulse Rate [Right Pulse Oximeter] 74 67 67 Respiratory Rate 16 16 16 Blood Pressure [Le ft Arm] 155/84 H 121/61 Pulse Oximetry 98 96 Oxygen Delivery Me thod Room Air Room Air 03/07/22 03:35 03/07/22 03:00 03/07/22 07:33 Temperature 98.5 F Pulse Rate 67 62 Pulse Rate [Right Pulse Oximeter] 69 Respiratory Rate 16 Blood Pressure [Le ft Arm] 159/72 H Pulse Oximetry 95 Oxygen Delivery Me thod Room Air DS: Data Data Completed and Pending Labs on day of discharge: Labs from last 24 hours 03/07/22 03/07/22 03/06/22 05:47 05:47 08:32 WBC 6.24 RBC 3.60 L Hgb 11.0 L Hct 32.7 L MCV 91 MCH 31 MCHC 34 RDW Coeff of Adam 12.0 Plt Count 203 Neut % (Auto) 49.8 Lymph % (Auto) 33.5 [place] % (Auto) 11.2 H Eos % (Auto) 5.0 Baso % (Auto) 0.3 Neut # (Auto) 3.11 Lymph # (Auto) 2.09 [place] # (Auto) 0.70 Eos # (Auto) 0.31 Baso # (Auto) 0.02 Sodium 137 139 Potassium 3.8 3.8 Chloride 108 106 Carbon Dioxide 25 26 BUN 14 19 Creatinine 0.9 1.0 Estimated Creat Clear 72.76 72.76 Estimated GFR 87 77 Glucose 149 H 158 H Calcium 8.2 L 8.7 Discharge Plan Discharge Disposition: Home, Self-Care Date of Admission: 03/02/22 20:12 Attending Provider on Discharge: Cleo Maurer Primary Care Provider: Rita Gutierrez Condition: Stable Anticipated Discharge Date/Time: 03/06/22 11:04 Discharge Medications: New amoxicillin-pot clavulanate [Augmentin] 500-125 mg tablet 1 tab PO BID Qty: 10 0RF Continued furosemide 20 mg tablet 20 mg PO DAILY metformin 500 mg tablet extended release 24 hr 1,000 mg PO BIDWM aspirin [Adult Aspirin Regimen] 81 mg tablet,delayed release (DR/EC) 81 mg PO DAILY prednisolone acetate 1 % drops,suspension 1 drp ophthalmic (eye) Q48H Label Comments: SHAKE LIQUID AND INSTILL 1 DROP IN BOTH EYES EVERY OTHER DAY DIRECTED Rx Instructions: USES ON EVEN DAYS Changed atorvastatin 10 mg tablet 20 mg PO DAILY Qty: 60 0RF lisinopril 40 mg tablet 20 mg PO DAILY Qty: 30 0RF amlodipine 10 mg tablet 5 mg PO DAILY Qty: 30 0RF Discontinued glipizide 10 mg tablet 10 mg PO BIDWM Discharge Orders: Discharge Order (Routine); Ordered 03/07/22 Ordered By: Cleo Maurer Consulting provider completed their portion of the discharge: Yes Patient Education: Amoxicillin/Clavulanate Potassium (By mouth) (Augmentin, Augmentin..., Bowel Resection (DC) Additional Instructions: I recommend that you reduce your blood pressure medicine, lisinopril and amlodipine. Cut each of these medicines in half until you see your doctor next week. I recommend you stop taking glipizide for diabetes until you see your doctor. Activity Level: No strenuous activity Activity Detail: No strenuous activity or lifting more than 15-20 lbs for 4-6 weeks. Follow Up Appointments: Cleo Maurer MD [Staff Physician] - (Two weeks [facility]) Rita Gutierrez MD [Primary Care Provider] - (Appointment next week to follow-up your bowel obstruction and your blood pressure and your blood sugar.) [facility] Discharge Comments: Patient should have nurse only appointment on MondayMarch 14 for staple removal.
[2022-03-07 10:05] VITALS: BP 117/60; PULSE 62; RESP 16; TEMP 36.9
[2022-03-07 10:40] VITALS: RESP 18; O2SAT 96
--- NOTE | 2022-03-07 12:18 | PC.NURSE ---
PT EVAL PER PT,OT, DR. SAWYER AND DR. MATHIS THIS AM. TELE INDICATES NSR. PT DOES HAVE A HEART MURMUR. PT HAS NO C/O CP OR SOB. PT DENIES PAIN, PASSING FLATUS AND TOLERATED 75% OF HIS MEAL. PT VERBALIZED UNDERSTANDING OF D/C DIAGNOSIS, HOME MEDS, F/UP APPTS AND SX TO REPORT URGENTLY TO PHYSICIAN. PT DISCHARGED VIA W/C TO OWN HOME WITH [facility] AT 1045 AM WITH ALL PERSONAL BELONGINGS.
== END 2022-03-07 10:45 | disposition home or self-care (01) | DRG 331 ==
LOC: ED 16:58 → SS 17:46 → MEDSURG 20:15 → SS 20:28 → MEDSURG 20:29
PROVIDERS: Family Medicine; Admitting Provider Surgery; Emergency Provider Student in an Organized Health Care Education/Training Program; PCP Family Medicine; Visit Provider Family Medicine
PROC: 0D9670Z Drainage of Stomach with Drainage Device, Via Natural or Artificial Opening (ICD-10-PCS; CPT 49320; principal; 2022-03-02 16:30)
DX: K55.019 Acute (reversible) ischemia of small intestine, extent unspecified (principal); K63.89 Other specified diseases of intestine; I35.0 Nonrheumatic aortic (valve) stenosis; N18.9 Chronic kidney disease, unspecified; E66.01 Morbid (severe) obesity due to excess calories; R93.1 Abnormal findings on diagnostic imaging of heart and coronary circulation; E87.8 Other disorders of electrolyte and fluid balance, not elsewhere classified; Z94.7 Corneal transplant status; Z68.32 Body mass index [BMI] 32.0-32.9, adult; I12.9 Hypertensive chronic kidney disease with stage 1 through stage 4 chronic kidney disease, or unspecified chronic kidney disease; E11.22 Type 2 diabetes mellitus with diabetic chronic kidney disease; E78.5 Hyperlipidemia, unspecified; K44.9 Diaphragmatic hernia without obstruction or gangrene; R10.31 Right lower quadrant pain; N52.9 Male erectile dysfunction, unspecified
CPT/HCPCS: 36415; 64488; 74177; 76942; 80048; 80053; 81001; 82962; 83605; 83690; 85025; 86140; 87635; 88307; 93005; 94761; 97110; 97112; 97116; 97161; 97530; 99283; A9270; C9290; J0131; J0330; J1100; J1170; J1650; J2370; J2405; J2543; J2704; J3010; J3475; J3490; J7120; Q9967

== ENCOUNTER 2022-03-17 22:10 | Emergency (ER) | payer MEDICARE, OTHER, SELFPAY ==
[2022-03-17] VITALS (8 sets, daily range): BP systolic 108–154; BP diastolic 69–86; PULSE 84–108; RESP 16; TEMP 36.3; O2SAT 96–99
--- NOTE | 2022-03-17 22:41 | CRLHL7_ITS ---
For Patients: As a result of the Century Cures Act, medical imaging exams and procedure reports are released immediately into your electronic medical record. You may view this report before your referring provider. If you have questions, please contact your health care provider. INDICATION: Abdominal pain. Recent ischemic bowel. TECHNIQUE: CT abdomen and pelvis acquired with 100 mL Isovue 370 contrast. COMPARISON: CT abdomen/pelvis dated 03/02/2022. FINDINGS: Lower chest: No focal consolidation. Liver: No suspicious focal hepatic lesion. Gallbladder and bile ducts: Cholelithiasis, unchanged. No secondary signs of acute cholecystitis. Pancreas: Unremarkable. Spleen: Unremarkable. Adrenal glands: Curvilinear calcification of left adrenal gland, unchanged. Unremarkable right adrenal gland. Kidneys: Kidneys enhance symmetrically, without hydronephrosis. Stable left renal cyst and multiple additional too small to characterize hypodense bilateral renal lesions. Retroperitoneum: No lymphadenopathy. Bowel and mesentery: Irregular wall thickening of the cecum, with subtle foci of pneumatosis. Additional short-segment focal colonic wall thickening with pneumatosis in the proximal transverse colon (series 2, image 66). Trace foci of air projecting over the intrahepatic IVC further corroborates suspicion of ischemic bowel. Bladder: Unremarkable for degree of distension. TURP defect is noted. Reproductive organs: No significant prostatomegaly. Pelvic lymph nodes: No lymphadenopathy. Vessels: Atherosclerotic calcifications. Abdominal wall: Postsurgical changes in the ventral abdominal wall. Bones: Multilevel degenerative changes of the spine. Bones are osteopenic. IMPRESSION: 1. Short-segment colonic wall thickening with pneumatosis in the proximal transverse colon, consistent with ischemic bowel. This location is similar to prior study. 2. However there is new colonic wall thickening and pneumatosis along the cecum, compatible with new area of ischemic bowel. Furthermore, small foci of air are noted within the intrahepatic IVC. Please note that all CT scans at this facility use dose modulation, iterative reconstruction, and/or weight-based dosing when appropriate to reduce radiation dose to as low as reasonably achievable. Dictated by Genna Parrish MD @ 03/18/2022 12:44:05 AM (Electronically Signed)
[2022-03-17] MEDS: ONDANSETRON 2 MG/ML inj 4 MG IVP (22:53)
[2022-03-17] MEDS: 0.9 % SODIUM CHLORIDE 500 ML 500 ML IV (22:55)
[2022-03-17 23:02] LABS: Lactate* 1.3 mmol/L (0.5-1.9)
[2022-03-17 23:04] LABS: Basophils Percent Auto 0.2 % (0.0-3.0); Eosinophils Percent Auto 1.7 % (0.0-7.0); Hematocrit 38.4 % (37.0-53.0); Hemoglobin* 12.8 gm/dL (13.5-17.5); Immature Granulocytes Pct Auto 0.3 %; Lymphocytes Percent Auto 19.6 % (20-44); Mean Corpuscular HGB Conc 33 gm/dL (32-36); Mean Corpuscular Hemoglobin 30 pg (26-34); Mean Corpuscular Volume 91 fL (80-100); Monocytes Percent Auto 7.8 % (0.0-11.0); Neutrophils Percent Auto 70.4 % (42.0-72.0); Platelet Count* 268 K/uL (140-440); RDW Coefficient of Variation % 12.3 % (11.5-15.5); Red Blood Count 4.21 m/uL (4.30-5.90); Slide Review Reflex No; White Blood Count* 17.16 K/uL (4.50-11.00)
[2022-03-17 23:18] LABS: Albumin* 4.1 g/dL (3.3-5.0); Chloride* 100 mmol/L (96-114)
[2022-03-17 23:19] LABS: Potassium* 4.2 mmol/L (3.6-5.1); Sodium* 133 mmol/L (135-149)
--- NOTE | 2022-03-17 23:19 | ED.GENADULT ---
HPI - General Adult General Date Seen: 03/17/22 Chief complaint: Abdominal Pain Stated complaint: Abdominal Pain Time Seen by Provider: 03/17/22 22:21 Source: patient and family Mode of arrival: ambulatory Limitations: no limitations History of Present Illness HPI narrative: Patient is a 77-year-old male here with his for evaluation of abdominal pain. He had a small bowel resection after developing ischemic bowel on March 02. He was discharged from the hospital on March 07, and reports that he has generally done well since discharge although he has not had complete bowel movements. He has had small bowel movements and has been passing gas. He has been eating and drinking okay. Today however, he developed abdominal pain which is diffuse, associated with some dry heaves after eating this morning. He ate some soup tonight. He has not had any vomiting. He is no longer passing gas. Pain feels similar to when he had his bowel obstruction. Denies fevers or urinary symptoms. No bloody stools. He has had the minoo out of his incision, which otherwise appears to be healing well. Related Data Home Medications Medication Instructions Recorded Confirmed furosemide 20 mg tablet 20 mg PO DAILY 03/02/22 03/03/22 metformin 500 mg tablet,extended 1,000 mg PO BIDWM 03/02/22 03/03/22 release 24 hr aspirin 81 mg tablet,delayed 81 mg PO DAILY 03/03/22 03/03/22 release (Adult Aspirin Regimen) prednisolone acetate 1 % eye 1 drp ophthalmic (eye) Q48H 03/04/22 03/04/22 drops,suspension Previous Rx's Medication Instructions Recorded amlodipine 10 mg tablet 5 mg PO DAILY #30 tabs 03/06/22 amoxicillin 500 mg-potassium 1 tab PO BID #10 tabs 03/06/22 clavulanate 125 mg tablet (Augmentin) atorvastatin 10 mg tablet 20 mg PO DAILY #60 tabs 03/06/22 lisinopril 40 mg tablet 20 mg PO DAILY #30 tabs 03/06/22 Allergies Allergy/AdvReac Type Severity Reaction Status Date / Time No Known Drug Allergies Allergy Verified 03/02/22 14:12 Review of Systems Status of ROS: Reports: 10 or more systems reviewed and unremarkable except as noted in History and below [facility] Medical History Abnormal echocardiogram Aortic stenosis Chronic kidney disease HTN (hypertension) Hyperlipidemia Morbid obesity Organic impotence Type 2 diabetes mellitus Surgical History H/O cornea transplant Hx of colonoscopy S/P appendectomy S/P exploratory laparotomy S/P small bowel resection S/P TURP (~06/2007) Status post right knee replacement Family History Father Asthma Mother Diabetes Social History Narrative: According to [facility] record, he is a former smoker who quit 30-40 years ago. Smoking Status: Former smoker What tobacco products do you use: cigarettes Smoking packs per day: 2 Smoking cigarettes per day: 40.0 Smoking quit date/years: >15 years ago Do you use any of these nicotine containing products: None Second hand tobacco smoke exposure: Yes How often do you have a drink containing alcohol: monthly or less Alcohol type: beer How often do you have six or more drinks on one occasion: Never AUDIT-C Alcohol total score: 1 Non-prescribed substance use: denies use Caffeine: Yes (soda) service: Yes Exam Narrative: Exam Narrative: Vital signs as noted above. In general, an alert, nontoxic elderly male. Looks comfortable. Head: Normocephalic, atraumatic. Eyes: Pupils are equal reactive. Extraocular movements are full. Conjunctivae are normal. ENT: Mucous membranes are moist. Neck: Supple without lymphadenopathy. Heart: Regular rate and rhythm. Systolic murmur heard throughout the precordium. Lungs: Clear bilaterally. No increased work of breathing, crackles or wheezes. Abdomen: Abdomen is soft, not significantly distended. Diffusely tender. Incision is healing well, no significant erythema or drainage. No rebound guarding or rigidity. Extremities: Well perfused. No edema. No calf tenderness. Pulses intact. Neurologic: Patient is alert and oriented to person and place. Speech is fluent. Face is symmetric. Moves all extremities equally. Affect: Normal. Skin: Warm and dry. Well perfused. Const: Vital Signs, click to edit/add: Vital Signs - 24 hr 03/17/22 22:15 03/17/22 23:04 03/17/22 23:04 Temperature 97.3 F L Pulse Rate 84 Pulse Rate [Left P ulse Oximeter] 108 H 84 Respiratory Rate 16 16 Blood Pressure 136/69 Blood Pressure [Ri ght Upper Arm] 108/71 136/69 Pulse Oximetry 98 98 96 Oxygen Delivery Me thod Room Air Room Air 03/17/22 23:05 03/17/22 23:15 03/17/22 23:30 Temperature Pulse Rate 95 88 92 Pulse Rate [Left P ulse Oximeter] Respiratory Rate Blood Pressure Blood Pressure [Ri ght Upper Arm] Pulse Oximetry 97 97 99 Oxygen Delivery Me thod 03/17/22 23:32 03/17/22 23:48 03/17/22 23:49 Temperature Pulse Rate 98 98 Pulse Rate [Left P ulse Oximeter] Respiratory Rate Blood Pressure 144/86 H 154/73 H Blood Pressure [Ri ght Upper Arm] Pulse Oximetry 99 99 Oxygen Delivery Me thod 03/18/22 00:00 03/18/22 00:01 03/18/22 00:02 Temperature Pulse Rate 93 92 95 Pulse Rate [Left P ulse Oximeter] Respiratory Rate Blood Pressure 147/76 H Blood Pressure [Ri ght Upper Arm] Pulse Oximetry 96 97 96 Oxygen Delivery Me thod 03/18/22 00:30 03/18/22 00:32 03/18/22 01:21 Temperature 99.8 F H Pulse Rate 100 93 Pulse Rate [Left P ulse Oximeter] 96 Respiratory Rate 16 Blood Pressure 146/70 H Blood Pressure [Ri ght Upper Arm] 147/72 H Pulse Oximetry 97 96 96 Oxygen Delivery Me thod Room Air Documenting provider has reviewed patient's vital signs: yes Course Course Hospital Course: An IV is placed, he declines and need for anything for pain but does note nausea so I gave him 4 mg of Zofran. Given concern for possible recurrent obstruction or ischemic bowel I have ordered a CT scan. There is a possibility for postoperative infection as well. His white blood cell count is elevated at 17 1000. Hemoglobin is 12.8. Lactate is normal at 1.3. Metabolic panel is fairly unremarkable. BUN creatinine are normal. Blood sugar 184. LFTs are normal. CRP is elevated at 5.9. Lipase is 67. CT scan read by Radiology as showing the following:FINDINGS: Lower chest: No focal consolidation. Liver: No suspicious focal hepatic lesion. Gallbladder and bile ducts: Cholelithiasis, unchanged. No secondary signs of acute cholecystitis. Pancreas: Unremarkable. Spleen: Unremarkable. Adrenal glands: Curvilinear calcification of left adrenal gland, unchanged. Unremarkable right adrenal gland. Kidneys: Kidneys enhance symmetrically, without hydronephrosis. Stable left renal cyst and multiple additional too small to characterize hypodense bilateral renal lesions. Retroperitoneum: No lymphadenopathy. Bowel and mesentery: Irregular wall thickening of the cecum, with subtle foci of pneumatosis. Additional short-segment focal colonic wall thickening with pneumatosis in the proximal transverse colon (series 2, image 66). Trace foci of air projecting over the intrahepatic IVC further corroborates suspicion of ischemic bowel. Bladder: Unremarkable for degree of distension. TURP defect is noted. Reproductive organs: No significant prostatomegaly. Pelvic lymph nodes: No lymphadenopathy. Vessels: Atherosclerotic calcifications. Abdominal wall: Postsurgical changes in the ventral abdominal wall. Bones: Multilevel degenerative changes of the spine. Bones are osteopenic. IMPRESSION: 1. Short-segment colonic wall thickening with pneumatosis in the proximal transverse colon, consistent with ischemic bowel. This location is similar to prior study. 2. However there is new colonic wall thickening and pneumatosis along the cecum, compatible with new area of ischemic bowel. Furthermore, small foci of air are noted within the intrahepatic IVC. I have discussed this with Dr. Rivero who is on-call for General surgery. She felt that patient should be transferred to a larger center in case vascular evaluation/angiography was needed to determine the cause for his recurrent ischemic bowel. I was able to talk with Dr. Orourke at [facility] who has graciously accepted the patient in transfer. He did ask for some medication for pain, I have given him 4 mg of morphine will see if that is helpful for him. Nausea is improved. Has been hemodynamically stable, tachycardia is improved after 500 mL of normal saline. Maintenance fluids ordered. Awaiting final disposition to [facility]. Vital Signs Vital signs: Initial Vital Signs Temperature 97.3 F L 03/17/22 22:15 Temperature Source Temporal Artery Scan 03/17/22 22:15 Pulse Rate 108 H 03/17/22 22:15 Pulse Rhythm 03/17/22 22:15 Respiratory Rate 16 03/17/22 22:15 Blood Pressure 108/71 03/17/22 22:15 Blood Pressure Mean 83 03/17/22 22:15 Blood Pressure Position Sitting 03/17/22 22:15 Pulse Oximetry 98 03/17/22 22:15 Oxygen Delivery Method 03/17/22 22:15 Vital Signs Temperature 97.3 F L 03/17/22 22:15 Pulse Rate 108 H 03/17/22 22:15 Respiratory Rate 16 03/17/22 22:15 Blood Pressure 108/71 03/17/22 22:15 Pulse Oximetry 98 03/17/22 22:15 Oxygen Delivery Method 03/17/22 22:15 Temperature 99.8 F H 03/18/22 01:21 Pulse Rate 96 03/18/22 01:21 Respiratory Rate 16 03/18/22 01:21 Blood Pressure 147/72 H 03/18/22 01:21 Pulse Oximetry 96 03/18/22 01:21 Oxygen Delivery Method 03/18/22 01:21 Medical Decision Making Lab Data Labs: Lab Results 03/17/22 03/17/22 03/17/22 Range/Units 22:50 22:50 22:50 WBC 17.16 H (4.50-11.00) K/uL RBC 4.21 L (4.30-5.90) m/uL Hgb 12.8 L (13.5-17.5) gm/dL Hct 38.4 (37.0-53.0) % MCV 91 (80-100) fL MCH 30 (26-34) pg MCHC 33 (32-36) gm/dL RDW Coeff of Adam 12.3 (11.5-15.5) % Plt Count 268 (140-440) K/uL Neut % (Auto) 70.4 (42.0-72.0) % Lymph % (Auto) 19.6 L (20-44) % Baldwin % (Auto) 7.8 (0.0-11.0) % Eos % (Auto) 1.7 (0.0-7.0) % Baso % (Auto) 0.2 (0.0-3.0) % Neut # (Auto) 12.10 H (1.7-7.0) K/uL Lymph # (Auto) 3.40 H (0.90-2.90) K/uL Baldwin # (Auto) 1.30 H (0.00-0.90) K/UL Eos # (Auto) 0.30 (0.00-0.50) K/uL Baso # (Auto) 0.00 (0.00-0.30) K/uL Sodium 133 L (135-149) mmol/L Potassium 4.2 (3.6-5.1) mmol/L Chloride 100 (96-114) mmol/L Carbon Dioxide 24 (20-32) mmol/L BUN 18 (7-30) mg/dL Creatinine 1.0 (0.5-1.5) mg/dL Estimated GFR 77 ml/min Glucose 184 H (60-115) mg/dL Lactate 1.3 (0.5-1.9) mmol/L Calcium 9.5 (8.4-10.6) mg/dL Total Bilirubin 0.8 (0.1-1.5) mg/dL Direct Bilirubin 0.2 (0.0-0.5) mg/dL AST 27 (12-35) U/L ALT 31 (4-50) U/L Alkaline Phosphatase 81 (40-150) U/L C-Reactive Protein 5.9 H (0.5-1.0) mg/dL Total Protein 7.4 (6.0-8.3) g/dL Albumin 4.1 (3.3-5.0) g/dL Lipase 67 (23-300) U/L Discharge Plan Discharge Clinical Impression: Ischemia, bowel Patient Disposition: [facility] Condition: Stable Prescriptions: No Action furosemide 20 mg tablet 20 mg PO DAILY metformin 500 mg tablet extended release 24 hr 1,000 mg PO BIDWM aspirin [Adult Aspirin Regimen] 81 mg tablet,delayed release (DR/EC) 81 mg PO DAILY prednisolone acetate 1 % drops,suspension 1 drp ophthalmic (eye) Q48H Label Comments: SHAKE LIQUID AND INSTILL 1 DROP IN BOTH EYES EVERY OTHER DAY DIRECTED Rx Instructions: USES ON EVEN DAYS amoxicillin-pot clavulanate [Augmentin] 500-125 mg tablet 1 tab PO BID Qty: 10 0RF atorvastatin 10 mg tablet 20 mg PO DAILY Qty: 60 0RF amlodipine 10 mg tablet 5 mg PO DAILY Qty: 30 0RF lisinopril 40 mg tablet 20 mg PO DAILY Qty: 30 0RF Stand Alone Forms: [facility] Info Instructions
[2022-03-17 23:21] LABS: Alkaline Phosphatase* 81 U/L (40-150); Aspartate Amino Transferase* 27 U/L (12-35); Bilirubin Direct* 0.2 mg/dL (0.0-0.5); Bilirubin Total* 0.8 mg/dL (0.1-1.5); Carbon Dioxide* 24 mmol/L (20-32); Estimated Glomerular Filt Rate 77 ml/min; Total Protein* 7.4 g/dL (6.0-8.3)
[2022-03-17 23:22] LABS: Alanine Aminotransferase* 31 U/L (4-50); Blood Urea Nitrogen* 18 mg/dL (7-30); Calcium* 9.5 mg/dL (8.4-10.6); Glucose* 184 mg/dL (60-115); Lipase* 67 U/L (23-300)
[2022-03-17 23:24] LABS: C Reactive Protein* 5.9 mg/dL (0.5-1.0)
[2022-03-18] VITALS (9 sets, daily range): BP systolic 144–153; BP diastolic 70–76; PULSE 89–104; RESP 16; TEMP 37.7; O2SAT 93–97
[2022-03-18] MEDS: MORPHINE 4 MG/ML INJ IVP ×2 (01:35→02:14)
[2022-03-18] MEDS: LACTATED RINGERS 1000 ML 1,000 ML 75 ML IV (01:41)
--- NOTE | 2022-03-18 01:46 | ED.NURSE ---
[facility]
--- NOTE | 2022-03-18 01:54 | ED.NURSE ---
Report to MI Sanchez at [facility] ED. Transport called.
[2022-03-18 02:06] LABS: PCR FLU A Negative PCR FLU A (Negative); PCR FLU B Negative PCR FLU B (Negative); PCR RSV Negative PCR RSV (Negative)
[2022-03-18 02:11] LABS: SARS PCR* Negative SARS-CoV-2 (Negative)
--- NOTE | 2022-03-18 02:21 | ED.NURSE ---
Patient transferred to [facility] via [facility]. Patient was sent with transfer paperwork which included: face sheet x2, PCS form, transfer consent, ED transfer report, MD note, operative note from 03/02 and imaging disk. LR infusing on transport. Patient belongings including clothing sent with patient. Patient stable at the time of transport. will be going home for the night.
--- NOTE | 2022-03-18 02:25 | ED.NURSE ---
[facility] called and updated with patient transport.
--- NOTE | 2022-03-18 02:26 | ED.NURSE ---
[facility] called and updated with patient transport.
== END 2022-03-18 02:31 | disposition home or self-care (01) ==
PROVIDERS: Emergency Provider Emergency Medicine; PCP Family Medicine
DX: K55.059 Acute (reversible) ischemia of intestine, part and extent unspecified (principal)
CPT/HCPCS: 36415; 74177; 80048; 80076; 83605; 83690; 85025; 86140; 87502; 87634; 87635; 96374; 96375; 96376; 99284; 99285; J2270; J2405; J7120; Q9967

== ENCOUNTER 2022-03-18 02:15 | Outpatient (CLI) | payer MEDICARE, OTHER, SELFPAY | END 2022-03-18 02:16 | disposition home or self-care (01) | LOC: AMB 09:21 | PROVIDERS: PCP Family Medicine; Visit Provider Family Medicine | DX: K55.9 Vascular disorder of intestine, unspecified (principal) | CPT/HCPCS: A0425; A0434 ==

== ENCOUNTER 2022-04-10 19:08 | Emergency (ER) | payer MEDICARE, OTHER, SELFPAY ==
[2022-04-10 19:21] VITALS: BP 150/75; PULSE 92; RESP 16; TEMP 36.5; O2SAT 96
--- NOTE | 2022-04-10 19:40 | ED_ITS ---
HPI - General Adult General Chief complaint: Fever Stated complaint: Fever Post Surgery Time Seen by Provider: 04/10/22 19:16 History of Present Illness HPI narrative: This 77-year-old male states that he had a fever this afternoon and felt some chills. He measured a temperature of 101? F. he reports some pain with urinating. He does have a chronic indwelling Mistry catheter since an abdominal surgery that occurred about 3 weeks ago. The catheter was removed but he had urinary retention. He has an appointment in 5 days with the urologist with plans to remove the catheter and do a void test. He states that he took Tylenol and now does not have any symptoms except for some pain around the catheter. He arrives with normal vital signs and normal temperature. Related Data Home Medications Medication Instructions Recorded Confirmed furosemide 20 mg tablet 20 mg PO DAILY 03/02/22 03/03/22 metformin 500 mg tablet,extended 1,000 mg PO BIDWM 03/02/22 03/03/22 release 24 hr aspirin 81 mg tablet,delayed 81 mg PO DAILY 03/03/22 03/03/22 release (Adult Aspirin Regimen) prednisolone acetate 1 % eye 1 drp ophthalmic (eye) Q48H 03/04/22 03/04/22 drops,suspension Previous Rx's Medication Instructions Recorded amlodipine 10 mg tablet 5 mg PO DAILY #30 tabs 03/06/22 amoxicillin 500 mg-potassium 1 tab PO BID #10 tabs 03/06/22 clavulanate 125 mg tablet (Augmentin) atorvastatin 10 mg tablet 20 mg PO DAILY #60 tabs 03/06/22 lisinopril 40 mg tablet 20 mg PO DAILY #30 tabs 03/06/22 cephalexin 500 mg capsule 500 mg PO TID 10 days #30 caps 04/10/22 Allergies Allergy/AdvReac Type Severity Reaction Status Date / Time No Known Drug Allergies Allergy Verified 03/02/22 14:12 Review of Systems Status of ROS: Reports: 10 or more systems reviewed and unremarkable except as noted in History and below Narrative: Constitutional: No fevers, no weight gain or loss. Eyes: No discharge. No vision changes. HENT: No congestion, no sore throat, no ear pain. Cardiovascular: No chest pain, no palpitations. Respiratory: No shortness of breath, no wheezes, no cough. Gastrointestinal: No abdominal pain, no vomiting, no diarrhea. Genitourinary: Chronic indwelling catheter with some associated pain. Musculoskeletal: Normal range of motion. Skin: No rashes, no pruritis. Neurological: No dizziness, weakness, sensory change, speech change. Endo/Heme/Allergies: No bruising or bleeding. No polydipsia. Pysch: no suicidality, no anxiety, no insomnia. All other systems reviewed and are negative. PFSH PFS Medical History Abnormal echocardiogram Aortic stenosis Chronic kidney disease HTN (hypertension) Hyperlipidemia Morbid obesity Organic impotence Type 2 diabetes mellitus Surgical History H/O cornea transplant Hx of colonoscopy S/P appendectomy S/P exploratory laparotomy S/P small bowel resection S/P TURP (~06/2007) Status post right knee replacement Family History Father Asthma Mother Diabetes Social History Narrative: According to [facility] record, he is a former smoker who quit 30-40 years ago. Smoking Status: Former smoker What tobacco products do you use: cigarettes Smoking packs per day: 2 Smoking cigarettes per day: 40.0 Smoking quit date/years: >15 years ago Do you use any of these nicotine containing products: None Second hand tobacco smoke exposure: Yes How often do you have a drink containing alcohol: monthly or less Alcohol type: beer How often do you have six or more drinks on one occasion: Never AUDIT-C Alcohol total score: 1 Non-prescribed substance use: denies use Caffeine: Yes (soda) service: Yes Exam Narrative: Exam Narrative: Constitutional: Well-developed, well-nourished, no acute distress. HEENT: Normocephalic, atraumatic. Neck: Normal range of motion. Nontender. Supple. Heart: Regular. Systolic ejection murmur. Normal rate. Intact distal pulses. Lungs: Clear to auscultation. No chest discomfort. No wheezes, rhonchi, or rales. Abdomen: Normal bowel sounds. Nontender. No rebound tenderness. Surgical scar in the abdomen is healing up properly. Genitalia: Deferred. Back: No midline tenderness. Normal range of motion. Extremities: Normal range of motion. No injury. Skin: Intact. No rash. Warm. No erythema or pallor. Neurologic: No altered sensation. No weakness. Alert and oriented. Psychiatric: No suicidality. No anxiety or depression. No insomnia. Nursing notes and vitals signs are reviewed. Const: Vital Signs, click to edit/add: Vital Signs - 24 hr 04/10/22 19:21 04/10/22 19:21 Temperature 97.7 F Pulse Rate [Pulse Oximeter] 92 Respiratory Rate 16 Blood Pressure [Ri t Upper Arm] 150/75 H Pulse Oximetry 96 Oxygen Delivery Me thod Room Air Room Air Course Vital Signs Vital signs: Initial Vital Signs Temperature 97.7 F 04/10/22 19:21 Temperature Source Temporal Artery Scan 04/10/22 19:21 Pulse Rate 92 04/10/22 19:21 Respiratory Rate 16 04/10/22 19:21 Respiratory Effort 04/10/22 19:21 Respiratory Depth Normal 04/10/22 19:21 Respiratory Pattern 04/10/22 19:21 Blood Pressure 150/75 H 04/10/22 19:21 Blood Pressure Mean 100 04/10/22 19:21 Pulse Oximetry 96 04/10/22 19:21 Oxygen Delivery Method 04/10/22 19:21 Sepsis Recent Fever Within 48 Hours Yes 04/10/22 19:21 Sepsis Action Taken by Nursing No Action Required 04/10/22 19:21 Vital Signs Temperature 97.7 F 04/10/22 19:21 Pulse Rate 92 04/10/22 19:21 Respiratory Rate 16 04/10/22 19:21 Blood Pressure 150/75 H 04/10/22 19:21 Pulse Oximetry 96 04/10/22 19:21 Oxygen Delivery Method 04/10/22 19:21 Temperature 97.7 F 04/10/22 19:21 Pulse Rate 92 04/10/22 19:21 Respiratory Rate 16 04/10/22 19:21 Blood Pressure 150/75 H 04/10/22 19:21 Pulse Oximetry 96 04/10/22 19:21 Oxygen Delivery Method 04/10/22 19:21 Medical Decision Making MDM Narrative Medical decision making narrative: This patient comes in stating that he felt some chills and wondered if he had a fever this afternoon. He arrives here with normal vital signs. He does report some pain around his Mistry catheter which has been in place since his surgery that occurred about 3 weeks ago. He is due to get this catheter out at the end of this week. A urinalysis is is acquired and there is a urinary tract infection. A prescription for Keflex is provided. His exam is reassuring. No further workup is mandatory at this time. Lab Data Labs: Lab Results 04/10/22 Range/Units 20:06 Urine Color Yellow (Yellow) Urine Appearance Cloudy A (Clear) Urine pH 6.0 (5.0-8.5) Ur Specific Arona 1.025 (1.000-1.030) Urine Protein 3+ A (Negative) Urine Glucose (UA) Negative (Negative) Urine Ketones Negative (Negative) Urine Blood 3+ A (Negative) Urine Nitrite Positive A (Negative) Urine Bilirubin Negative (Negative) Urine Urobilinogen 0.2 (0.2-1.0) Ur Leukocyte Esterase 3+ A (Negative) Urine RBC 5-10 A (0-2) Urine WBC 50-100 A (0-5) Ur Squamous Epith Cells Moderate A (None-Few) Urine Bacteria Many A (None) Discharge Plan Discharge Clinical Impression: Urinary tract infection Patient Disposition: Home, Self-Care Condition: Stable Additional Instructions: Follow up with MD as scheduled. Return if worsening symptoms happen. Continue current plans otherwise. Prescriptions: New cephalexin 500 mg capsule 500 mg PO TID 10 Days Qty: 30 0RF No Action furosemide 20 mg tablet 20 mg PO DAILY metformin 500 mg tablet extended release 24 hr 1,000 mg PO BIDWM aspirin [Adult Aspirin Regimen] 81 mg tablet,delayed release (DR/EC) 81 mg PO DAILY prednisolone acetate 1 % drops,suspension 1 drp ophthalmic (eye) Q48H Label Comments: SHAKE LIQUID AND INSTILL 1 DROP IN BOTH EYES EVERY OTHER DAY DIRECTED Rx Instructions: USES ON EVEN DAYS amoxicillin-pot clavulanate [Augmentin] 500-125 mg tablet 1 tab PO BID Qty: 10 0RF atorvastatin 10 mg tablet 20 mg PO DAILY Qty: 60 0RF amlodipine 10 mg tablet 5 mg PO DAILY Qty: 30 0RF lisinopril 40 mg tablet 20 mg PO DAILY Qty: 30 0RF Follow Up/Referrals: Rita Gutierrez MD [Primary Care Provider] - Stand Alone Forms: [facility] Info Instructions
--- NOTE | 2022-04-10 20:08 | ED.NURSE ---
Mistry catheter clamped and clean sample obtained from [facility] and sent to lab.
[2022-04-10 20:12] LABS: Appearance Urine Cloudy (Clear); Bilirubin Urine Negative (Negative); Blood Urine 3+ (Negative); Color Urine Yellow (Yellow); Glucose Urine Negative (Negative); Ketones Urine Negative (Negative); Leukocyte Esterase Urine 3+ (Negative); Nitrite Urine Positive (Negative); Protein Urine 3+ (Negative); Specific Gravity Urine 1.025 (1.000-1.030); Urobilinogen Urine 0.2 (0.2-1.0)
[2022-04-10 20:23] LABS: Bacteria Urine Many; Squamous Epithelial Cell Urine Moderate (None-Few); WBC Urine 50-100 (0-5)
[2022-04-10] MEDS: cephALEXin 500 MG CAPSULE PO (20:34)
== END 2022-04-10 20:56 | disposition home or self-care (01) ==
PROVIDERS: Emergency Provider Emergency Medicine Emergency Medical Services; PCP Family Medicine
DX: N39.0 Urinary tract infection, site not specified (principal)
CPT/HCPCS: 81001; 87086; 87186; 99283; 99284; A9270

== ENCOUNTER 2024-04-02 16:29 | Outpatient (REF) | payer MEDICARE, OTHER, SELFPAY ==
[2024-04-02 17:08] LABS: Albumin* 4.4 g/dL (3.3-5.0); Chloride* 101 mmol/L (96-114); Potassium* 4.6 mmol/L (3.6-5.1); Sodium* 137 mmol/L (135-149)
[2024-04-02 17:11] LABS: Anion Gap 11 mEq/L (7-15); Blood Urea Nitrogen* 43 mg/dL (7-30); Calcium* 9.5 mg/dL (8.4-10.6); Carbon Dioxide* 25 mmol/L (20-32); Creatinine* 1.5 mg/dL (0.5-1.5); Estimated Glomerular Filt Rate 47 ml/min; Glucose* 221 mg/dL (60-115); Phosphorus* 4.1 mg/dL (2.5-4.5)
[2024-04-02 17:17] LABS: Creatinine Urine 118.6 mg/dL
[2024-04-02 17:21] LABS: Microalbumin Creatinine Ratio 20 mg/g (0-30); Microalbumin Urine 3 mg/dL
== END 2024-04-02 16:30 | disposition home or self-care (01) ==
LOC: NPINS 16:29
PROVIDERS: PCP Family Medicine; Visit Provider Internal Medicine Nephrology
DX: E11.22 Type 2 diabetes mellitus with diabetic chronic kidney disease (principal); N18.31 Chronic kidney disease, stage 3a
CPT/HCPCS: 80069; 80076; 82043; 82570